=== PATIENT | female | born 1970 | race Caucasian/White ===

== ENCOUNTER 2016-06-05 18:02 | Inpatient (IN) | payer OTHER ==
[~2016-06-05] VITALS: Ht 160 cm; Wt 73.3 kg
[2016-06-05 22:00] VITALS: BP 139/84; RESP 18
[2016-06-05] MEDS ORDERED: LACTULOSE 30ML CUP PO PRN (22:30)
[2016-06-05] MEDS ORDERED: MAGNESIUM HYDROXIDE 30ML CUP PO PRN (22:30)
[2016-06-05] MEDS ORDERED: BISACODYL 10 MG SUPP PR PRN (22:30)
[2016-06-05] MEDS ORDERED: ACETAMINOPHEN 325 MG TAB PO PRN (22:30)
[2016-06-05 23:00] VITALS: Ht 160 cm; Wt 73.3 kg
[2016-06-05] MEDS ORDERED: GLUCOSE GEL 15 GRAM TUBE BUCCAL PRN (23:00)
[2016-06-05] MEDS ORDERED: GLUCAGON 1 MG INJ IM PRN (23:00)
[2016-06-05] MEDS ORDERED: GLUCOSE GEL 15 GRAM TUBE PO PRN ×2 (23:00)
[2016-06-05] MEDS ORDERED: [UNRECOGNIZED DRUG - REMARK] XX SCH (23:00)
[2016-06-05] MEDS ORDERED: DEXTROSE 50% 50 ML SYRINGE IV PRN ×2 (23:00)
[2016-06-06] MEDS: ACCUCHECK AT 2AM (Patients on SS coverage) XX SCH (02:00)
[2016-06-06 02:01] LABS: ADD UMIC YES; URINE BILIRUBIN (Dip) NEGATIVE (NEGATIVE); URINE BLOOD (Dip) NEGATIVE (NEGATIVE); URINE COLOR LT. YELLOW (YELLOW); URINE GLUCOSE (Dip) NEGATIVE (NEGATIVE); URINE KETONES (Dip) NEGATIVE (NEGATIVE); URINE LEUKOCYTE ESTERASE (Dip) 1+ (NEGATIVE); URINE NITRITE (Dip) POSITIVE (NEGATIVE); URINE TOTAL PROTEIN (Dip) NEGATIVE (NEGATIVE); URINE UROBILINOGEN (Dip) 0.2 E.U./dL (0.1-1.0)
[2016-06-06 02:21] LABS: SQUAMOUS EPITHELIAL CELL,UR OCCASIONAL; URINE RBCS 0-2 /HPF (0)
[2016-06-06 02:22] LABS: BACTERIA,URINE MANY
[2016-06-06 07:30] VITALS: BP 135/80; RESP 18
[2016-06-06] MEDS ORDERED: INSULIN GLARGINE [LANtus] 3 ML PEN SC SCH (08:00)
[2016-06-06 08:13] LABS: BASOPHIL # 0.1 10^3/ul (0.0-0.1); BASOPHILS % 0.6 % (0.0-2.0); EOSINOPHILS # 0.2 10^3/ul (0.0-0.5); EOSINOPHILS % 2.3 % (0.0-7.0); HEMATOCRIT 49.9 % (37.0-47.0); HEMOGLOBIN 16.5 g/dl (12.0-16.0); LYMPHOCYTES # 3.3 10^3/ul (0.8-2.9); LYMPHOCYTES % 35.4 % (15.0-51.0); MEAN CORPUSCULAR HEMOGLOBIN 30.3 pg (29.0-33.0); MEAN CORPUSCULAR HGB CONC 33.1 g/dl (32.0-37.0); MEAN CORPUSCULAR VOLUME 91.7 fl (82.0-101.0); MEAN PLATELET VOLUME 10.7 fl (7.4-10.4); MONOCYTE # 0.8 10^3/ul (0.3-0.9); MONOCYTES % 8.3 % (0.0-11.0); NEUTROPHILS % 53.3 % (39.0-77.0); PLATELET COUNT 323 10^3/UL (140-415); RED BLOOD COUNT 5.44 10^6/ul (4.20-5.40); RED CELL DISTRIBUTION WIDTH 13.7 % (11.5-14.5); WHITE BLOOD COUNT 9.3 10^3/ul (4.8-10.8)
[2016-06-06 08:14] LABS: ALBUMIN 4.3 g/dl (3.3-4.9)
[2016-06-06 08:15] LABS: POTASSIUM 4.3 mmol/L (3.5-5.1)
[2016-06-06 08:17] LABS: ALBUMIN/GLOBULIN RATIO 1.16; BILIRUBIN,INDIRECT 0.2 mg/dl (0-1.1); BILIRUBIN,TOTAL 0.2 mg/dl (0.2-1.3); CALCIUM 9.4 mg/dl (8.4-10.2); CREATININE 1.92 mg/dl (0.44-1.00)
[2016-06-06] MEDS: DOCUSATE SODIUM 100 MG CAP PO SCH ×2 (08:52→21:05)
[2016-06-06] MEDS: AMLODIPINE 10 MG TAB PO SCH (08:57)
[2016-06-06] MEDS: LISINOPRIL 20 MG TAB PO SCH (08:58)
[2016-06-06] MEDS ORDERED: ATENOLOL 25 MG TAB PO SCH (09:00)
[2016-06-06] MEDS ORDERED: HYDROCHLOROTHIAZIDE 25 MG TAB PO SCH (09:00)
[2016-06-06] MEDS: Insulin NOVOLOG SS MILD Algorithm (SS with meals and bedtime) SC SCH ×4 (09:04→21:13)
--- NOTE | 2016-06-06 12:26 | CONS ---
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 ACTIVE COMORBIDITIES: 1. Uncontrolled diabetes mellitus. 2. Hypertension. 3. Dysphagia. 4. Impairments in self-care and mobility. HISTORY OF PRESENT ILLNESS: The patient is a pleasant 45-year-old right-handed female with a histor y of hypertension who was admitted with weakness and blurry vision. Workup was consistent with acut e mid brain hemorrhagic CVA. The patient was evaluated by neurosurgery and no surgical intervention was indicated. The patient has been cleared to transfer to the rehabilitation unit for comprehensi ve interdisciplinary rehab care. FUNCTIONAL HISTORY: Prior to recent events, she was independent in self-care tasks and mobility. C urrently, she requires moderate assist. I have reviewed the preadmission screen and the patient's current functional status is consistent wi th the preadmission screen. SOCIAL HISTORY: The patient lives at home with family and hopes to return home upon discharge. PAST MEDICAL HISTORY: Hypertension. CURRENT MEDICATIONS: 1. Insulin sliding scale. 2. Amlodipine 10 mg p.o. daily. 3. Atorvastatin 80 mg p.o. at bedtime. 4. Lisinopril 40 mg p.o. daily. 5. Metoprolol 100 mg b.i.d. 6. Hydrochlorothiazide 50 mg daily. ALLERGIES: THE PATIENT WITH NO KNOWN DRUG ALLERGIES. PHYSICAL EXAMINATION: VITAL SIGNS: The patient is currently afebrile with stable vital signs. HEENT: Extraocular motion intact. Oropharynx clear. The patient with decreased nasolabial fold. LUNGS: Clear anteriorly. CARDIAC: S1, S2. ABDOMEN: Soft, nontender, positive bowel sounds. NEUROLOGIC: She is awake and alert and oriented x3. She will follow simple 1-step commands. She d emonstrates good strength in the right upper and lower extremity. She has 2+ strength in the left u pper extremity, 3+ strength, in the left lower extremity. PLAN: The patient has been admitted for comprehensive interdisciplinary acute rehab and is anticipa vi to tolerate 3 hours of daily therapy in divided doses for at least 5/7 days a week. Treatment p maricruz will include: 1. Physical therapy to focus on bed mobility, transfers, and household ambulation with the goal of having the patient reach a standby assist level. 2. Occupational therapy to focus on hygiene, grooming, dressing, bathing, and toileting activities with the goal of having the patient reach standby assist level. 3. Rehabilitation nursing for carryover of therapeutic interventions with the goal of continent of bowel and bladder, the goal of patient and family education with regards to the aforementioned issue s. ESTIMATED LENGTH OF STAY: Two weeks. DISPOSITION GOAL: Home. REHABILITATION BARRIER: Dysphagia. INTERVENTION FOR BARRIER: Speech therapy. I acknowledge that I performed a full physical examination on this patient within 24 hours of admiss ion to the rehabilitation unit and believe the patient is a good candidate for comprehensive interdi sciplinary rehab care and is anticipated to make reasonable goals in a reasonable period of time as outlined above. Dictated By: ALEXANDRO CABAN/APRYL Conf#: [id number] DID#: [id number]
[2016-06-06] MEDS ORDERED: SOD CHLORIDE 0.45% 1,000 ML IV SCH (16:30)
[2016-06-06] MEDS: HYDROCHLOROTHIAZIDE 12.5 MG CAP PO SCH (18:12)
[2016-06-06 20:00] VITALS: BP 125/68; RESP 18
[2016-06-06] MEDS ORDERED: METOPROLOL 100 MG TAB PO SCH (21:00)
[2016-06-06] MEDS: SENNA TAB PO SCH (21:05)
[2016-06-06] MEDS: METOPROLOL 50 MG TAB PO SCH (21:05)
[2016-06-06] MEDS: ATORVASTATIN 80 MG TAB PO SCH (21:05)
[2016-06-07] MEDS: ACCUCHECK AT 2AM (Patients on SS coverage) XX SCH (02:05)
[2016-06-07 07:30] VITALS: BP 135/75; RESP 18
--- NOTE | 2016-06-07 08:05 | HP ---
DATE OF ADMISSION: 06/05/2016 FIRE MANAGEMENT SPECIALIST: None. REASON FOR ADMISSION: Status post CVA. HISTORY OF PRESENT ILLNESS: This is a 45-year-old female with past medical history of hypertension and diabetes mellitus, who on 05/29/2016 was admitted to [facility] secondary to having 5 d ays of blurry vision. The patient's blurry vision was constant. She denied any history of smoking or alcohol intake. The patient had the history of blood pressure, but has not been taking her medi cation recently and her blood pressure was found to be over [address] of the brain was obtained which showed acute mid brain intracranial hemorrhage and she was admitted to the ICU where she was seen and evaluated by neurology and neurosurgery. After clearance by the neurolog y, neurosurgery and medical team at [place], the patient was transferred to [facility] rehab for further evaluation and treatment. At this time, the patient denies having any chest pain, shortness of breath, nausea, vomiting, diarrhea. No headache, dizziness, lightheadedness. No change in visual acuity, diplopia, photophobia. No abdominal pain. The patient has been able to t olerate p.o. intake during the course of hospitalization. She does have residual left upper and low er extremity weakness and according to her daughter, the patient is not back to her baseline mentall y yet. PAST MEDICAL AND SURGICAL HISTORY: 1. Intracranial hemorrhage. 2. Hypertension. 3. Diabetes mellitus. MEDICATIONS: 1. Tylenol. 2. Norvasc. 3. Lipitor. 4. Hydralazine p.r.n. 5. Lantus. 6. Insulin sliding scale. 7. Labetalol p.r.n. 8. Reglan. 9. Metoprolol. 10. Nicardipine p.r.n. 11. Zofran. ALLERGIES: NO KNOWN DRUG ALLERGIES. FAMILY HISTORY: No history of CVA. Positive for hypertension, diabetes mellitus. SOCIAL HISTORY: Negative x3 for smoking, alcohol, illicit drugs. REVIEW OF SYSTEMS: As above per HPI, otherwise 12 review of systems has been found to be negative. PHYSICAL EXAMINATION: GENERAL APPEARANCE: The patient is lying in bed comfortably without any distress. She is awake, al ert, oriented. She is able to follow my commands without any difficulty. EYES AND ENT: Conjunctivae and lids are normal. Pupils are normal. Extraocular normal. Hearing g rossly normal. Lips, teeth and gums normal. Oral mucosa is mildly dry. NECK: Supple. Trachea midline. No lymphadenopathy. RESPIRATORY: Effort is normal. Clear to auscultation bilaterally. CARDIOVASCULAR: Normal S1, S2. Regular rhythm and rate. No murmur, no bruits, no edema. Peripher al pulses, radial pulses palpable. Capillary refill is normal. CHEST: Normal expansion of thorax during inspiration. GASTROINTESTINAL: Abdomen is soft, nontender, nondistended. Bowel sounds present. No guarding, no rebound. GENITOURINARY: Deferred. MUSCULOSKELETAL: Left upper extremity 4/5, left upper extremity 4/5. Right extremity is normal. The patient is awake, alert, able to follow commands. LABORATORY DATA: Sodium 139, potassium 4.3, chloride 98, bicarbonate 24, BUN 54, creatinine 1.92, g lucose 193, calcium 9.4. AST 71, ALT 98, alkaline phosphatase 192. WBC 9.3, hemoglobin 16.5, hemat ocrit 49.9, platelets 323. IMAGING: MRI of the brain revealed limited study due to patient motion. Findings most likely repre sent x 1 in the dorsal mid brain, acute hemorrhagic lesion. There is surrounding edema. This represents recent hemorrhage within the preexisting cavernoma, acute infarct in the left late ral chriss and superior cerebellum, tiny acute infarct in the right parietal white matter. CT angiogr am of the head with contrast: There was no AVM or aneurysm, no abnormal enhancement was seen. Prev iously seen hemorrhage above mid brain was again seen. ASSESSMENT AND PLAN: 1. Subacute mid brain bleed. 2. Essential hypertension. 3. Diabetes mellitus. 4. Dyslipidemia. 5. History of noncompliance with medical management. 6. Acute renal insufficiency. 7. Transaminitis. PLAN: The patient has been admitted to acute rehabilitation. We will continue patient's blood pres sure medications such as amlodipine. Place the patient on Lopressor. Decrease hydrochlorothiazide secondary to acute renal insufficiency. Continue lisinopril, although we will be cautious regarding the dosage and we will decrease the dosage if the renal panel continues to be insufficient. Regard ing diabetes mellitus, the patient has been placed on insulin sliding scale, low-carbohydrate diet a nd Lantus. We increased the Lantus to 15 units secondary to uncontrolled diabetes mellitus. The pa tient will be continued on physical therapy, occupational therapy and speech therapy during this cou rse of acute rehabilitation. For deep venous thrombosis prophylaxis, on SCDs. Refrain from using a ny pharmacologic DVT prophylaxis secondary to intracranial hemorrhage. Dictated By: SCAR BOYER MD PN/NTS Conf#: [id number] DID#: [id number]
[2016-06-07] MEDS: LISINOPRIL 20 MG TAB PO SCH (08:23)
[2016-06-07] MEDS: HYDROCHLOROTHIAZIDE 12.5 MG CAP PO SCH (08:24)
[2016-06-07] MEDS: DOCUSATE SODIUM 100 MG CAP PO SCH ×2 (08:24→20:14)
[2016-06-07] MEDS: METOPROLOL 50 MG TAB PO SCH ×2 (08:24→20:15)
[2016-06-07] MEDS: AMLODIPINE 10 MG TAB PO SCH (08:24)
[2016-06-07] MEDS: INSULIN GLARGINE [LANtus] 3 ML PEN SC SCH (08:26)
[2016-06-07] MEDS: Insulin NOVOLOG SS MILD Algorithm (SS with meals and bedtime) SC SCH ×4 (08:26→20:21)
[2016-06-07] MEDS ORDERED: HYDROCHLOROTHIAZIDE 25 MG TAB PO SCH (09:00)
--- NOTE | 2016-06-07 11:50 | CONS ---
Date/Time of Note Date/Time of Note DATE: 06/07/16 TIME: 11:48 Consult Date/Type/Reason Admit Date/Time Jun 05, 2016 at 20:45 Initial Consult Date Subjective Patient with some nause/vomitting this morning. Feels better now Objective pulm-cta abd-soft, nt min/mod 20 feet Vital Signs Date Time Temp Pulse Resp B/P Pulse Ox O2 Delivery O2 Flow Rate FiO2 06/07/16 07:30 98.2 58 18 135/75 95 Intake and Output 06/06/16 06/06/16 06/07/16 15:00 23:00 07:00 Intake Total 420 ml 940 ml Output Total 300 ml Balance 420 ml 640 ml Results/Medications Result Diagram: 06/06/1671406/06/16714 Results 24 hrs Laboratory Tests Test 06/06/16 11:58 06/06/16 17:41 06/06/16 21:04 06/07/16 01:52 Bedside Glucose 241 H 208 257 H 155 Test 06/07/16 07:24 Bedside Glucose 155 Medications Current Medications Acetaminophen (Tylenol Tab) 650 mg Q4H PRN PO PAIN AND OR ELEVATED TEMP; Start 06/05/16 at 22:30 Amlodipine Besylate (Norvasc) 10 mg DAILY PO Last administered on 06/07/16 08: 24; Admin Dose 10 MG; Start 06/06/16 at 09:00 Atorvastatin Calcium (Lipitor) 80 mg HS PO Last administered on 06/06/16 21:05 ; Admin Dose 80 MG; Start 06/06/16 at 21:00 Lisinopril (Zestril) 40 mg DAILY PO Last administered on 06/07/16 08:23; Admin Dose 40 MG; Start 06/06/16 at 09:00 Docusate Sodium (Colace) 100 mg BID PO Last administered on 06/07/16 08:24; Admin Dose 100 MG; Start 06/06/16 at 09:00 Senna (Senokot) 1 tab HS PO Last administered on 06/06/16 21:05; Admin Dose 1 TAB; Start 06/06/16 at 21:00 Magnesium Hydroxide (Milk Of Mag) 30 ml BID PRN PO CONSTIPATION Last administered on 06/07/16 08:27; Admin Dose 30 ML; Start 06/05/16 at 22:30 Lactulose (Enulose) 20 gm DAILY PRN PO CONSTIPATION; Start 06/05/16 at 22:30 Bisacodyl (Dulcolax Supp) 10 mg DAILY PRN [place] CONSTIPATION; Start 06/05/16 at 22 :30 Miscellaneous Information 1 ea NOTE XX ; Start 06/05/16 at 23:00 Glucose (Glutose) 15 gm Q15M PRN PO DECREASED GLUCOSE; Start 06/05/16 at 23:00 Glucose (Glutose) 22.5 gm Q15M PRN PO DECREASED GLUCOSE; Start 06/05/16 at 23: 00 Dextrose (D50w Syringe) 25 ml Q15M PRN IV DECREASED GLUCOSE; Start 06/05/16 at 23:00 Dextrose (D50w Syringe) 50 ml Q15M PRN IV DECREASED GLUCOSE; Start 06/05/16 at 23:00 Glucagon (Glucagen) 1 mg Q15M PRN IM DECREASED GLUCOSE; Start 06/05/16 at 23:00 Glucose (Glutose) 15 gm Q15M PRN BUCCAL DECREASED GLUCOSE; Start 06/05/16 at 23 :00 Diagnostic Test (Pha) (Accucheck) 1 ea 02 XX Last administered on 06/07/16 02: 05; Admin Dose 1 EA; Start 06/06/16 at 02:00 Influenza Virus Vaccine (Fluzone) 0.5 ml ONCE ONCE IM* ; Start 06/08/16 at 09:00 ; Stop 06/08/16 at 09:01 Metoprolol Tartrate (Lopressor) 50 mg BID PO Last administered on 06/06/16 21: 05; Admin Dose 50 MG; Start 06/06/16 at 21:00 Hydrochlorothiazide (Hydrochlorothiazide) 12.5 mg DAILY PO Last administered on 06/07/16 08:24; Admin Dose 12.5 MG; Start 06/06/16 at 18:00 Insulin Glargine (Lantus) 15 unit DAILY@08 SC Last administered on 06/07/16 08 :26; Admin Dose 15 UNIT; Start 06/07/16 at 08:00 Assessment/Plan Additional Assessment/Plan Rehab- 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 Tolerating rehab program, continue current therapy diabetes mellitus-michael suggs, better today. Hypertension. Dysphagia. ALEXANDRO MELTON MD Jun 07, 2016 11:50
[2016-06-07] MEDS ORDERED: ONDANSETRON 4 MG INJ IV PRN (15:00)
--- NOTE | 2016-06-07 16:13 | PN ---
Date/Time of Note Date/Time of Note DATE: 06/07/16 TIME: 16:11 Assessment/Plan VTE Prophylaxis VTE Prophylaxis Intervention: SCD's Lines/Catheters IV [facility] Peripheral IV Urinary Cath still in place: No Assessment/Plan Chief Complaint/Hosp Course ASSESSMENT AND PLAN: 1. Subacute mid brain bleed. The patient will be continued on physical therapy , occupational therapy and speech therapy during this course of acute rehabilitation 2. Essential hypertension. Well-controlled on amlodipine, benazepril and Lopressor 3. Diabetes mellitus. Follow hemoglobin A1c, continue Lantus, low-carb diet 4. Dyslipidemia. 5. History of noncompliance with medical management. 6. Acute renal insufficiency. Follow-up renal panel in a.m. 7. Transaminitis. Continue to monitor PLAN: For deep venous thrombosis prophylaxis, on SCDs. Refrain from using any pharmacologic DVT prophylaxis secondary to intracranial hemorrhage. We will continue monitor patient closely for recommendation management treatment as clinical course Problems: Subjective 24 Hr Interval Summary Free Text/Dictation Patient denies any chest pain or shortness of breath Follow oral intake Moderate assist with ambulation, ambulating with walker Exam/Review of Systems Vital Signs Vitals Vital Signs Date Time Temp Pulse Resp B/P Pulse Ox O2 Delivery O2 Flow Rate FiO2 06/07/16 07:30 98.2 58 18 135/75 95 Intake and Output 06/06/16 06/06/16 06/07/16 15:00 23:00 07:00 Intake Total 420 ml 940 ml Output Total 300 ml Balance 420 ml 640 ml Exam General: The patient is well-developed, Not in acute distress. HEENT: Atraumatic, normocephalic. The pupils are equal and round . Neck: Supple with full range of motion. Chest: Normal expansion of the thorax during inspiration Lungs: Clear to auscultation bilaterally Heart: Normal S1-S2, Regular rhythm and rate. Abdomen: Soft , nontender, nondistended , bowel sounds are present. Extremities: Left upper and lower extremity weakness4/5 , no edema no cyanosis Neurologic: ,The patient is awake, alert Results Result Diagram: 06/06/16 0715 06/06/16 0715 Results 24 hrs Laboratory Tests Test 06/06/16 17:41 06/06/16 21:04 06/07/16 01:52 06/07/16 07:24 Bedside Glucose 208 257 H 155 155 Test 06/07/16 12:04 Bedside Glucose 253 H Medications Medications Current Medications Acetaminophen (Tylenol Tab) 650 mg Q4H PRN PO PAIN AND OR ELEVATED TEMP; Start 06/05/16 at 22:30 Amlodipine Besylate (Norvasc) 10 mg DAILY PO Last administered on 06/07/16 08: 24; Admin Dose 10 MG; Start 06/06/16 at 09:00 Atorvastatin Calcium (Lipitor) 80 mg HS PO Last administered on 06/06/16 21:05 ; Admin Dose 80 MG; Start 06/06/16 at 21:00 Lisinopril (Zestril) 40 mg DAILY PO Last administered on 06/07/16 08:23; Admin Dose 40 MG; Start 06/06/16 at 09:00 Docusate Sodium (Colace) 100 mg BID PO Last administered on 06/07/16 08:24; Admin Dose 100 MG; Start 06/06/16 at 09:00 Senna (Senokot) 1 tab HS PO Last administered on 06/06/16 21:05; Admin Dose 1 TAB; Start 06/06/16 at 21:00 Magnesium Hydroxide (Milk Of Mag) 30 ml BID PRN PO CONSTIPATION Last administered on 06/07/16 08:27; Admin Dose 30 ML; Start 06/05/16 at 22:30 Lactulose (Enulose) 20 gm DAILY PRN PO CONSTIPATION; Start 06/05/16 at 22:30 Bisacodyl (Dulcolax Supp) 10 mg DAILY PRN [place] CONSTIPATION; Start 06/05/16 at 22 :30 Miscellaneous Information 1 ea NOTE XX ; Start 06/05/16 at 23:00 Glucose (Glutose) 15 gm Q15M PRN PO DECREASED GLUCOSE; Start 06/05/16 at 23:00 Glucose (Glutose) 22.5 gm Q15M PRN PO DECREASED GLUCOSE; Start 06/05/16 at 23: 00 Dextrose (D50w Syringe) 25 ml Q15M PRN IV DECREASED GLUCOSE; Start 06/05/16 at 23:00 Dextrose (D50w Syringe) 50 ml Q15M PRN IV DECREASED GLUCOSE; Start 06/05/16 at 23:00 Glucagon (Glucagen) 1 mg Q15M PRN IM DECREASED GLUCOSE; Start 06/05/16 at 23:00 Glucose (Glutose) 15 gm Q15M PRN BUCCAL DECREASED GLUCOSE; Start 06/05/16 at 23 :00 Diagnostic Test (Pha) (Accucheck) 1 ea 02 XX Last administered on 06/07/16 02: 05; Admin Dose 1 EA; Start 06/06/16 at 02:00 Influenza Virus Vaccine (Fluzone) 0.5 ml ONCE ONCE IM* ; Start 06/08/16 at 09:00 ; Stop 06/08/16 at 09:01 Metoprolol Tartrate (Lopressor) 50 mg BID PO Last administered on 06/06/16 21: 05; Admin Dose 50 MG; Start 06/06/16 at 21:00 Hydrochlorothiazide (Hydrochlorothiazide) 12.5 mg DAILY PO Last administered on 06/07/16 08:24; Admin Dose 12.5 MG; Start 06/06/16 at 18:00 Insulin Glargine (Lantus) 15 unit DAILY@08 SC Last administered on 06/07/16 08 :26; Admin Dose 15 UNIT; Start 06/07/16 at 08:00 Ondansetron HCl (Zofran Inj) 4 mg Q6H PRN IV NAUSEA AND/OR VOMITING; Start at 15:00 SCAR BOYER MD Jun 07, 2016 16:13
[2016-06-07 20:00] VITALS: BP 120/76; RESP 18
[2016-06-07] MEDS: ATORVASTATIN 80 MG TAB PO SCH (20:14)
[2016-06-07] MEDS: SENNA TAB PO SCH (20:15)
[2016-06-08] MEDS: ACCUCHECK AT 2AM (Patients on SS coverage) XX SCH (02:00)
[2016-06-08 07:58] LABS: POTASSIUM 4.2 mmol/L (3.5-5.1)
[2016-06-08 08:01] LABS: CALCIUM 9.7 mg/dl (8.4-10.2); CREATININE 2.16 mg/dl (0.44-1.00)
[2016-06-08] MEDS ORDERED: INFLUENZA VIRUS VACCINE 0.5 ML (DISPENSING) IM* ONE (09:00)
[2016-06-08] MEDS ORDERED: ERTAPENEM SODIUM 1 GM VIAL IM SCH (09:00)
[2016-06-08] MEDS: DOCUSATE SODIUM 100 MG CAP PO SCH ×2 (09:19→20:50)
[2016-06-08] MEDS: METOPROLOL 50 MG TAB PO SCH ×2 (09:20→20:50)
[2016-06-08] MEDS: LISINOPRIL 20 MG TAB PO SCH (09:20)
[2016-06-08] MEDS: AMLODIPINE 10 MG TAB PO SCH (09:20)
[2016-06-08] MEDS: HYDROCHLOROTHIAZIDE 12.5 MG CAP PO SCH (09:20)
[2016-06-08] MEDS: INSULIN GLARGINE [LANtus] 3 ML PEN SC SCH (09:21)
[2016-06-08] MEDS: Insulin NOVOLOG SS MILD Algorithm (SS with meals and bedtime) SC SCH ×4 (09:24→20:56)
[2016-06-08] MEDS ORDERED: ERTAPENEM SODIUM 1 GM in SOD CHLORIDE 0.9% 100 ML IVPB SCH (12:00)
[2016-06-08] MEDS ORDERED: ERTAPENEM SODIUM 1 GM VIAL IVPB SCH (12:00)
--- NOTE | 2016-06-08 13:02 | PN ---
Date/Time of Note Date/Time of Note DATE: 06/08/16 TIME: 12:57 Assessment/Plan VTE Prophylaxis VTE Prophylaxis Intervention: SCD's Lines/Catheters IV Catheter Type (from Nrs): [place] Urinary Cath still in place: No Assessment/Plan Assessment/Plan 1. Mid brain intracranial hemorrhage, managed conservatively, with residual weakness, impaired mobility/gait/ADLs/cognition and dysphagia. Continue PT/OT/ ST. Modified diet per ST. Min assist for bed mobility. Continue monitoring neurological status. 2. Uncontrolled DM. Continue to monitor blood sugars, insulin regimen adjusted by internal medicine. 3. Hypertension. BP controlled. 4. UTI with ESBL E Coli and Proteus. Started on antibiotics per internal medicine. On contact isolation. 5. Acute kidney injury. S/p IV fluids. Worsening on labs today, management per internal medicine. Continue to closely monitor. Avoid nephrotoxic agents. Will ask check post void residual. Subjective 24 Hr Interval Summary Free Text/Dictation Rehab progress note Subjective: Reports some urinary frequency but no dysuria, no chills. ROS: No abdominal pain, no chest pain, no shortness of breath, no headache, no dizziness, no new weakness. Exam/Review of Systems Vital Signs Vitals Vital Signs Date Time Temp Pulse Resp B/P Pulse Ox O2 Delivery O2 Flow Rate FiO2 06/07/16 20:00 98.6 77 18 120/76 93 Intake and Output 06/07/16 06/07/16 06/08/16 15:00 23:00 07:00 Intake Total 660 ml 200 ml Balance 660 ml 200 ml Exam General: Awake, alert, no acute distress CV: Regular rate, s1s2 Lungs: Symmetrical air entry bilaterally, no wheezing Abdomen soft, nontender Extremities without cyanosis, LLE AFO brace in place Neuro: Follows simple commands. No increase in tone. Results Result Diagram: 06/06/16 0715 06/08/16 0645 Results 24 hrs Laboratory Tests Test 06/07/16 17:23 06/07/16 20:19 06/08/16 01:52 06/08/16 06:05 Bedside Glucose 213 225 H 189 Hemoglobin A1c 10.2 H Test 06/08/16 06:45 06/08/16 07:58 06/08/16 12:28 Anion Gap 22 H Blood Urea Nitrogen 74 H Calcium Level 9.7 Carbon Dioxide Level 23 Chloride Level 100 Creatinine 2.16 H Glucose Level 201 Potassium Level 4.2 Sodium Level 141 Bedside Glucose 176 242 H Medications Medications Current Medications Acetaminophen (Tylenol Tab) 650 mg Q4H PRN PO PAIN AND OR ELEVATED TEMP; Start 06/05/16 at 22:30 Amlodipine Besylate (Norvasc) 10 mg DAILY PO Last administered on 06/08/16 09: 20; Admin Dose 10 MG; Start 06/06/16 at 09:00 Atorvastatin Calcium (Lipitor) 80 mg HS PO Last administered on 06/07/16 20:14 ; Admin Dose 80 MG; Start 06/06/16 at 21:00 Lisinopril (Zestril) 40 mg DAILY PO Last administered on 06/08/16 09:20; Admin Dose 40 MG; Start 06/06/16 at 09:00 Docusate Sodium (Colace) 100 mg BID PO Last administered on 06/08/16 09:19; Admin Dose 100 MG; Start 06/06/16 at 09:00 Senna (Senokot) 1 tab HS PO Last administered on 06/07/16 20:15; Admin Dose 1 TAB; Start 06/06/16 at 21:00 Magnesium Hydroxide (Milk Of Mag) 30 ml BID PRN PO CONSTIPATION Last administered on 06/07/16 08:27; Admin Dose 30 ML; Start 06/05/16 at 22:30 Lactulose (Enulose) 20 gm DAILY PRN PO CONSTIPATION; Start 06/05/16 at 22:30 Bisacodyl (Dulcolax Supp) 10 mg DAILY PRN [place] CONSTIPATION; Start 06/05/16 at 22 :30 Miscellaneous Information 1 ea NOTE XX ; Start 06/05/16 at 23:00 Glucose (Glutose) 15 gm Q15M PRN PO DECREASED GLUCOSE; Start 06/05/16 at 23:00 Glucose (Glutose) 22.5 gm Q15M PRN PO DECREASED GLUCOSE; Start 06/05/16 at 23: 00 Dextrose (D50w Syringe) 25 ml Q15M PRN IV DECREASED GLUCOSE; Start 06/05/16 at 23:00 Dextrose (D50w Syringe) 50 ml Q15M PRN IV DECREASED GLUCOSE; Start 06/05/16 at 23:00 Glucagon (Glucagen) 1 mg Q15M PRN IM DECREASED GLUCOSE; Start 06/05/16 at 23:00 Glucose (Glutose) 15 gm Q15M PRN BUCCAL DECREASED GLUCOSE; Start 06/05/16 at 23 :00 Diagnostic Test (Pha) (Accucheck) 1 ea 02 XX Last administered on 06/07/16 02: 05; Admin Dose 1 EA; Start 06/06/16 at 02:00 Metoprolol Tartrate (Lopressor) 50 mg BID PO Last administered on 06/08/16 09: 20; Admin Dose 50 MG; Start 06/06/16 at 21:00 Hydrochlorothiazide (Hydrochlorothiazide) 12.5 mg DAILY PO Last administered on 06/08/16 09:20; Admin Dose 12.5 MG; Start 06/06/16 at 18:00 Insulin Glargine (Lantus) 15 unit DAILY@08 SC Last administered on 06/08/16 09 :21; Admin Dose 15 UNIT; Start 06/07/16 at 08:00 Ondansetron HCl 4 mg 4 mg Q6H PRN IV NAUSEA AND/OR VOMITING; Start 06/07/16 at 15:00 Ertapenem/Sodium Chloride (Invanz/NS) 100 ml @ 200 mls/hr 12 IVPB Last administered on 06/08/16 12:27; Admin Dose 200 MLS/HR; Start 06/08/16 at 12:00 NIDHI COHEN Jun 08, 2016 13:02
--- NOTE | 2016-06-08 14:46 | PN ---
Date/Time of Note Date/Time of Note DATE: 06/08/16 TIME: 14:44 Assessment/Plan VTE Prophylaxis VTE Prophylaxis Intervention: SCD's Lines/Catheters IV C[facility]ter Type (from [facility] Saline Lock Urinary Cath still in place: No Assessment/Plan Chief Complaint/Hosp Course ASSESSMENT AND PLAN: 1. Subacute mid brain bleed. The patient will be continued on physical therapy , occupational therapy and speech therapy during this course of acute rehabilitation 2. Essential hypertension. Well-controlled on nifedipine, benazepril and Lopressor 3. Diabetes mellitus. continue Lantus, low-carb diet 4. Dyslipidemia. 5. History of noncompliance with medical management. 6. Acute renal insufficiency. Avoid nephrotoxins and meds, nephrology has been consulted, patient has been started on IV fluid, benazepril has been decreased from 40 mg to 20 mg daily 7. Transaminitis. Continue to monitor PLAN: For deep venous thrombosis prophylaxis, on SCDs. Refrain from using any pharmacologic DVT prophylaxis secondary to intracranial hemorrhage. We will continue monitor patient closely for recommendation management treatment as clinical course Problems: Subjective 24 Hr Interval Summary Free Text/Dictation Patient is able to tolerate oral intake No significant changes Exam/Review of Systems Vital Signs Vitals Vital Signs Date Time Temp Pulse Resp B/P Pulse Ox O2 Delivery O2 Flow Rate FiO2 06/07/16 20:00 98.6 77 18 120/76 93 Intake and Output 06/07/16 06/07/16 06/08/16 15:00 23:00 07:00 Intake Total 660 ml 200 ml Balance 660 ml 200 ml Exam General: The patient is moderately overweight, Not in acute distress. HEENT: Atraumatic, normocephalic. The pupils are equal and round . Neck: Supple with full range of motion. Chest: Normal expansion of the thorax during inspiration Lungs: Clear to auscultation bilaterally Heart: Normal S1-S2, Regular rhythm and rate. Abdomen: Soft , nontender, nondistended , bowel sounds are present. Extremities: Left upper and lower extremity weakness 3/5, no edema no cyanosis Neurologic:The patient is awake, alert Results Result Diagram: 06/06/16 0715 06/08/16 0645 Results 24 hrs Laboratory Tests Test 06/07/16 17:23 06/07/16 20:19 06/08/16 01:52 06/08/16 06:05 Bedside Glucose 213 225 H 189 Hemoglobin A1c 10.2 H Test 06/08/16 06:45 06/08/16 07:58 06/08/16 12:28 Anion Gap 22 H Blood Urea Nitrogen 74 H Calcium Level 9.7 Carbon Dioxide Level 23 Chloride Level 100 Creatinine 2.16 H Glucose Level 201 Potassium Level 4.2 Sodium Level 141 Bedside Glucose 176 242 H Medications Medications Current Medications Acetaminophen (Tylenol Tab) 650 mg Q4H PRN PO PAIN AND OR ELEVATED TEMP; Start 06/05/16 at 22:30 Amlodipine Besylate (Norvasc) 10 mg DAILY PO Last administered on 06/08/16 09: 20; Admin Dose 10 MG; Start 06/06/16 at 09:00 Atorvastatin Calcium (Lipitor) 80 mg HS PO Last administered on 06/07/16 20:14 ; Admin Dose 80 MG; Start 06/06/16 at 21:00 Lisinopril (Zestril) 40 mg DAILY PO Last administered on 06/08/16 09:20; Admin Dose 40 MG; Start 06/06/16 at 09:00 Docusate Sodium (Colace) 100 mg BID PO Last administered on 06/08/16 09:19; Admin Dose 100 MG; Start 06/06/16 at 09:00 Senna (Senokot) 1 tab HS PO Last administered on 06/07/16 20:15; Admin Dose 1 TAB; Start 06/06/16 at 21:00 Magnesium Hydroxide (Milk Of Mag) 30 ml BID PRN PO CONSTIPATION Last administered on 06/07/16 08:27; Admin Dose 30 ML; Start 06/05/16 at 22:30 Lactulose (Enulose) 20 gm DAILY PRN PO CONSTIPATION; Start 06/05/16 at 22:30 Bisacodyl (Dulcolax Supp) 10 mg DAILY PRN [place] CONSTIPATION; Start 06/05/16 at 22 :30 Miscellaneous Information 1 ea NOTE XX ; Start 06/05/16 at 23:00 Glucose (Glutose) 15 gm Q15M PRN PO DECREASED GLUCOSE; Start 06/05/16 at 23:00 Glucose (Glutose) 22.5 gm Q15M PRN PO DECREASED GLUCOSE; Start 06/05/16 at 23: 00 Dextrose (D50w Syringe) 25 ml Q15M PRN IV DECREASED GLUCOSE; Start 06/05/16 at 23:00 Dextrose (D50w Syringe) 50 ml Q15M PRN IV DECREASED GLUCOSE; Start 06/05/16 at 23:00 Glucagon (Glucagen) 1 mg Q15M PRN IM DECREASED GLUCOSE; Start 06/05/16 at 23:00 Glucose (Glutose) 15 gm Q15M PRN BUCCAL DECREASED GLUCOSE; Start 06/05/16 at 23 :00 Diagnostic Test (Pha) (Accucheck) 1 ea 02 XX Last administered on 06/07/16 02: 05; Admin Dose 1 EA; Start 06/06/16 at 02:00 Metoprolol Tartrate (Lopressor) 50 mg BID PO Last administered on 06/08/16 09: 20; Admin Dose 50 MG; Start 06/06/16 at 21:00 Hydrochlorothiazide (Hydrochlorothiazide) 12.5 mg DAILY PO Last administered on 06/08/16 09:20; Admin Dose 12.5 MG; Start 06/06/16 at 18:00 Insulin Glargine (Lantus) 15 unit DAILY@08 SC Last administered on 06/08/16 09 :21; Admin Dose 15 UNIT; Start 06/07/16 at 08:00 Ondansetron HCl 4 mg 4 mg Q6H PRN IV NAUSEA AND/OR VOMITING; Start 06/07/16 at 15:00 Ertapenem/Sodium Chloride (Invanz/NS) 100 ml @ 200 mls/hr 12 IVPB Last administered on 06/08/16 12:27; Admin Dose 200 MLS/HR; Start 06/08/16 at 12:00 SCAR BOYER MD Jun 08, 2016 14:46
[2016-06-08] MEDS: SOD CHLORIDE 0.45% 1,000 ML IV SCH (17:21)
[2016-06-08 19:29] VITALS: BP 124/75; RESP 16
[2016-06-08 19:50] VITALS: BP 121/70; RESP 18
[2016-06-08] MEDS: NIFEdipine (XL) 60 MG TAB PO SCH (20:50)
[2016-06-08] MEDS: ATORVASTATIN 80 MG TAB PO SCH (20:50)
[2016-06-08] MEDS: SENNA TAB PO SCH (20:50)
[2016-06-09] MEDS: ACCUCHECK AT 2AM (Patients on SS coverage) XX SCH (02:00)
[2016-06-09 07:23] LABS: ADD SCAN DIFF NO
[2016-06-09 07:27] LABS: BASOPHIL # 0.1 10^3/ul (0.0-0.1); BASOPHILS % 0.9 % (0.0-2.0); EOSINOPHILS # 0.2 10^3/ul (0.0-0.5); EOSINOPHILS % 2.5 % (0.0-7.0); HEMATOCRIT 47.4 % (37.0-47.0); HEMOGLOBIN 15.9 g/dl (12.0-16.0); LYMPHOCYTES # 3.4 10^3/ul (0.8-2.9); LYMPHOCYTES % 37.1 % (15.0-51.0); MEAN CORPUSCULAR HEMOGLOBIN 30.6 pg (29.0-33.0); MEAN CORPUSCULAR HGB CONC 33.5 g/dl (32.0-37.0); MEAN CORPUSCULAR VOLUME 91.3 fl (82.0-101.0); MEAN PLATELET VOLUME 10.9 fl (7.4-10.4); MONOCYTE # 0.7 10^3/ul (0.3-0.9); MONOCYTES % 7.5 % (0.0-11.0); NEUTROPHIL # 4.8 10^3/ul (1.6-7.5); NEUTROPHILS % 51.7 % (39.0-77.0); PLATELET COUNT 363 10^3/UL (140-415); RED BLOOD COUNT 5.19 10^6/ul (4.20-5.40); RED CELL DISTRIBUTION WIDTH 13.2 % (11.5-14.5); WHITE BLOOD COUNT 9.3 10^3/ul (4.8-10.8)
[2016-06-09 07:30] VITALS: BP 119/73; RESP 18
[2016-06-09 07:47] LABS: POTASSIUM 4.4 mmol/L (3.5-5.1)
[2016-06-09 07:50] LABS: CREATININE 1.63 mg/dl (0.44-1.00)
[2016-06-09 07:51] LABS: CALCIUM 9.4 mg/dl (8.4-10.2); MAGNESIUM 2.6 mg/dl (1.7-2.5)
[2016-06-09] MEDS: METOPROLOL 50 MG TAB PO SCH ×2 (09:00→20:23)
[2016-06-09] MEDS ORDERED: LISINOPRIL 20 MG TAB PO SCH (09:00)
[2016-06-09] MEDS: Insulin NOVOLOG SS MILD Algorithm (SS with meals and bedtime) SC SCH ×4 (09:02→20:49)
[2016-06-09] MEDS: DOCUSATE SODIUM 100 MG CAP PO SCH ×2 (09:03→20:22)
[2016-06-09] MEDS: INSULIN GLARGINE [LANtus] 3 ML PEN SC SCH (09:03)
[2016-06-09] MEDS: NIFEdipine (XL) 60 MG TAB PO SCH ×2 (09:03→20:23)
--- NOTE | 2016-06-09 10:58 | PN ---
Date/Time of Note Date/Time of Note DATE: 06/09/16 TIME: 10:53 Assessment/Plan VTE Prophylaxis VTE Prophylaxis Intervention: SCD's Lines/Catheters IV Catheter Type (from Nrs): Peripheral IV Urinary Cath still in place: No Assessment/Plan Assessment/Plan 1. Mid brain intracranial hemorrhage with residual weakness, impaired mobility/ gait/ADLs/cognition and dysphagia. Continue PT/OT/ST. Mod assist for transfers. Maintain aspiration precautions. Continue monitoring neurological status for any changes. 2. Uncontrolled DM. Continue to monitor blood sugars, internal medicine managing insulin regimen. 3. Hypertension. BP controlled. Internal medicine has adjusted medications. 4. UTI with ESBL E Coli and Proteus. On antibiotics per internal medicine. On contact isolation. 5. Acute kidney injury. Improved on lab today. Continue to closely monitor. Nephrology has been consulted and further work up has been ordered. PVR checked this morning 18ml. Subjective 24 Hr Interval Summary Free Text/Dictation Rehab progress note Subjective: Denies any acute complaints. Reports feeling better today. ROS: Denies headache, no dizziness, no new visual changes, no new weakness or new paresthesias, denies chest pain, no shortness of breath, no abdominal pain. Exam/Review of Systems Vital Signs Vitals Vital Signs Date Time Temp Pulse Resp B/P Pulse Ox O2 Delivery O2 Flow Rate FiO2 06/09/16 07:30 97.5 58 18 119/73 96 Intake and Output 06/08/16 06/08/16 06/09/16 15:00 23:00 07:00 Intake Total 720 ml Output Total 200 ml Balance 520 ml Exam General: Awake, alert, no acute distress CV: Regular rate, s1s2 Lungs: Respirations are nonlabored with no accessory muscle use, no wheezing Abdomen soft, nontender Extremities without cyanosis, no new swelling Neuro: No new focal changes. Oriented to self, May 2016, and [facility]". Results Result Diagram: 06/09/16 0645 06/09/16 0645 Results 24 hrs Laboratory Tests Test 06/08/16 12:28 06/08/16 17:24 06/08/16 20:29 06/09/16 02:19 Bedside Glucose 242 H 138 211 139 Test 06/09/16 06:45 06/09/16 07:21 Anion Gap 20 H Basophils # 0.1 Basophils % 0.9 Blood Urea Nitrogen 67 H Calcium Level 9.4 Carbon Dioxide Level 26 Chloride Level 99 Creatinine 1.63 H Eosinophils # 0.2 Eosinophils % 2.5 Glucose Level 164 Hematocrit 47.4 H Hemoglobin 15.9 Lymphocytes # 3.4 H Lymphocytes % 37.1 Magnesium Level 2.6 H Mean Corpuscular Hemoglobin 30.6 Mean Corpuscular Hemoglobin Concent 33.5 Mean Corpuscular Volume 91.3 Mean Platelet Volume 10.9 H Monocytes # 0.7 Monocytes % 7.5 Neutrophils # 4.8 Neutrophils % 51.7 Nucleated Red Blood Cells # 0.0 Nucleated Red Blood Cells % 0.0 Platelet Count 363 Potassium Level 4.4 Red Blood Count 5.19 Red Cell Distribution Width 13.2 Sodium Level 141 White Blood Count 9.3 Bedside Glucose 145 Medications Medications Current Medications Acetaminophen (Tylenol Tab) 650 mg Q4H PRN PO PAIN AND OR ELEVATED TEMP Last administered on 06/08/16 17:21; Admin Dose 650 MG; Start 06/05/16 at 22:30 Atorvastatin Calcium (Lipitor) 80 mg HS PO Last administered on 06/08/16 20:50 ; Admin Dose 80 MG; Start 06/06/16 at 21:00 Docusate Sodium (Colace) 100 mg BID PO Last administered on 06/09/16 09:03; Admin Dose 100 MG; Start 06/06/16 at 09:00 Senna (Senokot) 1 tab HS PO Last administered on 06/08/16 20:50; Admin Dose 1 TAB; Start 06/06/16 at 21:00 Magnesium Hydroxide (Milk Of Mag) 30 ml BID PRN PO CONSTIPATION Last administered on 06/07/16 08:27; Admin Dose 30 ML; Start 06/05/16 at 22:30 Lactulose (Enulose) 20 gm DAILY PRN PO CONSTIPATION; Start 06/05/16 at 22:30 Bisacodyl (Dulcolax Supp) 10 mg DAILY PRN [place] CONSTIPATION; Start 06/05/16 at 22 :30 Miscellaneous Information 1 ea NOTE XX ; Start 06/05/16 at 23:00 Glucose (Glutose) 15 gm Q15M PRN PO DECREASED GLUCOSE; Start 06/05/16 at 23:00 Glucose (Glutose) 22.5 gm Q15M PRN PO DECREASED GLUCOSE; Start 06/05/16 at 23: 00 Dextrose (D50w Syringe) 25 ml Q15M PRN IV DECREASED GLUCOSE; Start 06/05/16 at 23:00 Dextrose (D50w Syringe) 50 ml Q15M PRN IV DECREASED GLUCOSE; Start 06/05/16 at 23:00 Glucagon (Glucagen) 1 mg Q15M PRN IM DECREASED GLUCOSE; Start 06/05/16 at 23:00 Glucose (Glutose) 15 gm Q15M PRN BUCCAL DECREASED GLUCOSE; Start 06/05/16 at 23 :00 Diagnostic Test (Pha) (Accucheck) 1 ea 02 XX Last administered on 06/07/16 02: 05; Admin Dose 1 EA; Start 06/06/16 at 02:00 Metoprolol Tartrate (Lopressor) 50 mg BID PO Last administered on 06/08/16 20: 50; Admin Dose 50 MG; Start 06/06/16 at 21:00 Ondansetron HCl (Zofran Inj) 4 mg Q6H PRN IV NAUSEA AND/OR VOMITING; Start at 15:00 Insulin Glargine (Lantus) 18 unit DAILY@08 SC Last administered on 06/09/16 09 :03; Admin Dose 18 UNIT; Start 06/09/16 at 08:00 Lisinopril (Zestril) 20 mg DAILY PO ; Start 06/09/16 at 09:00 Nifedipine 60 mg 60 mg BID PO Last administered on 06/09/16 09:03; Admin Dose 60 MG; Start 06/08/16 at 21:00 Sodium Chloride 1,000 ml @ 60 mls/hr [id number] IV Last administered on 17:21; Admin Dose 60 MLS/HR; Start 06/08/16 at 15:00 Ertapenem/Sodium Chloride (Invanz/NS) 100 ml @ 200 mls/hr Q24H IVPB ; Start at 12:00 NIDHI COHEN Jun 09, 2016 10:58
[2016-06-09] MEDS: SOD CHLORIDE 0.45% 1,000 ML IV SCH (11:05)
[2016-06-09] MEDS ORDERED: ERTAPENEM SODIUM 0.5 GM in SOD CHLORIDE 0.9% 100 ML IVPB SCH (12:00)
--- NOTE | 2016-06-09 12:06 | RADRPT ---
PROCEDURE: Retroperitoneal ultrasound. CLINICAL INDICATION: Acute renal failure TECHNIQUE: Loving scale and color doppler ultrasound images of the retroperitoneum, kidneys, urinary bladder COMPARISON: No prior studies are available for comparison. FINDINGS: Right kidney 10.7 cm in length. Right renal cortical thickness is preserved. Left kidney 11.3 cm in length. Left renal cortical thickness is preserved. Normal echogenicity. Mild left-sided pelviectasis without caliectasis. No renal calculi. No focal lesions. Bladder: No focal lesions. IMPRESSION: Mild left-sided pelviectasis without caliectasis may be due to partially extrarenal variant or minim al hydronephrosis. No renal calculi are seen. RPTAT: AADD .Felice Kauffman MD, Date Time Electronically viewed and signed by .Felice Kauffman MD, on 06/09/2016 12:06 .B/
[2016-06-09 13:56] LABS: ADD UMIC YES; URINE BILIRUBIN (Dip) NEGATIVE (NEGATIVE); URINE BLOOD (Dip) NEGATIVE (NEGATIVE); URINE COLOR LT. YELLOW (YELLOW); URINE KETONES (Dip) NEGATIVE (NEGATIVE); URINE LEUKOCYTE ESTERASE (Dip) 1+ (NEGATIVE); URINE NITRITE (Dip) NEGATIVE (NEGATIVE); URINE TOTAL PROTEIN (Dip) NEGATIVE (NEGATIVE); URINE UROBILINOGEN (Dip) 0.2 E.U./dL (0.1-1.0)
--- NOTE | 2016-06-09 14:04 | PN ---
Date/Time of Note Date/Time of Note DATE: 06/09/16 TIME: 14:03 Assessment/Plan VTE Prophylaxis VTE Prophylaxis Intervention: SCD's, other Lines/Catheters IV C[facility] Type [facility]from [facility] Peripheral IV Urinary Cath still in place: No Assessment/Plan Chief Complaint/Hosp Course ASSESSMENT AND PLAN: 1. Subacute mid brain bleed. The patient will be continued on physical therapy , occupational therapy and speech therapy during this course of acute rehabilitation 2. Essential hypertension. Well-controlled on nifedipine, benazepril and Lopressor 3. Diabetes mellitus. continue Lantus, low-carb diet 4. Dyslipidemia. 5. History of noncompliance with medical management. 6. Acute renal insufficiency. Avoid nephrotoxins and meds, nephrology has been consulted, patient has been started on IV fluid, benazepril has been decreased from 40 mg to 20 mg daily 7. Transaminitis. Continue to monitor PLAN: For deep venous thrombosis prophylaxis, on SCDs. Refrain from using any pharmacologic DVT prophylaxis secondary to intracranial hemorrhage. We will continue monitor patient closely for recommendation management treatment as clinical course Problems: Subjective 24 Hr Interval Summary Free Text/Dictation No acute changes Patient is max assist with ambulation and activity No nausea vomiting diarrhea Denies any chest pain or shortness of breath Tolerating oral intake Exam/Review of Systems Vital Signs Vitals Vital Signs Date Time Temp Pulse Resp B/P Pulse Ox O2 Delivery O2 Flow Rate FiO2 06/09/16 07:30 97.5 58 18 119/73 96 Intake and Output 06/08/16 06/08/16 06/09/16 15:00 23:00 07:00 Intake Total 720 ml Output Total 200 ml Balance 520 ml Exam General: The patient is well-developed, Not in acute distress. HEENT: Atraumatic, normocephalic. The pupils are equal and round . Neck: Supple with full range of motion. Chest: Normal expansion of the thorax during inspiration Lungs: Clear to auscultation bilaterally Heart: Normal S1-S2, Regular rhythm and rate. Abdomen: Soft , nontender, nondistended , bowel sounds are present. Extremities: Left-sided upper and lower extremity weakness, no edema no cyanosis Neurologic: ,The patient is awake, alert Results Result Diagram: 06/09/16 0645 06/09/16 0645 Results 24 hrs Laboratory Tests Test 06/08/16 17:24 06/08/16 20:29 06/09/16 02:19 06/09/16 06:45 Bedside Glucose 138 211 139 Anion Gap 20 H Basophils # 0.1 Basophils % 0.9 Blood Urea Nitrogen 67 H Calcium Level 9.4 Carbon Dioxide Level 26 Chloride Level 99 Creatinine 1.63 H Eosinophils # 0.2 Eosinophils % 2.5 Glucose Level 164 Hematocrit 47.4 H Hemoglobin 15.9 Lymphocytes # 3.4 H Lymphocytes % 37.1 Magnesium Level 2.6 H Mean Corpuscular Hemoglobin 30.6 Mean Corpuscular Hemoglobin Concent 33.5 Mean Corpuscular Volume 91.3 Mean Platelet Volume 10.9 H Monocytes # 0.7 Monocytes % 7.5 Neutrophils # 4.8 Neutrophils % 51.7 Nucleated Red Blood Cells # 0.0 Nucleated Red Blood Cells % 0.0 Platelet Count 363 Potassium Level 4.4 Red Blood Count 5.19 Red Cell Distribution Width 13.2 Sodium Level 141 White Blood Count 9.3 Test 06/09/16 07:21 06/09/16 11:54 06/09/16 13:35 Bedside Glucose 145 312 H Urine Bilirubin NEGATIVE Urine Clarity CLEAR Urine Color LT. YELLOW Urine Glucose 0.25% H Urine Hemoglobin NEGATIVE Urine Ketones NEGATIVE Urine Leukocyte Esterase 1+ H Urine Microscopic RBC Pending Urine Microscopic WBC Pending Urine Nitrite NEGATIVE Urine Specific [place] 1.010 Urine Total Protein NEGATIVE Urine Urobilinogen 0.2 E.U./dL Urine pH 6.0 Medications Medications Current Medications Acetaminophen (Tylenol Tab) 650 mg Q4H PRN PO PAIN AND OR ELEVATED TEMP Last administered on 06/08/16 17:21; Admin Dose 650 MG; Start 06/05/16 at 22:30 Atorvastatin Calcium (Lipitor) 80 mg HS PO Last administered on 06/08/16 20:50 ; Admin Dose 80 MG; Start 06/06/16 at 21:00 Docusate Sodium (Colace) 100 mg BID PO Last administered on 06/09/16 09:03; Admin Dose 100 MG; Start 06/06/16 at 09:00 Senna (Senokot) 1 tab HS PO Last administered on 06/08/16 20:50; Admin Dose 1 TAB; Start 06/06/16 at 21:00 Magnesium Hydroxide (Milk Of Mag) 30 ml BID PRN PO CONSTIPATION Last administered on 06/07/16 08:27; Admin Dose 30 ML; Start 06/05/16 at 22:30 Lactulose (Enulose) 20 gm DAILY PRN PO CONSTIPATION; Start 06/05/16 at 22:30 Bisacodyl (Dulcolax Supp) 10 mg DAILY PRN [place] CONSTIPATION; Start 06/05/16 at 22 :30 Miscellaneous Information 1 ea NOTE XX ; Start 06/05/16 at 23:00 Glucose (Glutose) 15 gm Q15M PRN PO DECREASED GLUCOSE; Start 06/05/16 at 23:00 Glucose (Glutose) 22.5 gm Q15M PRN PO DECREASED GLUCOSE; Start 06/05/16 at 23: 00 Dextrose (D50w Syringe) 25 ml Q15M PRN IV DECREASED GLUCOSE; Start 06/05/16 at 23:00 Dextrose (D50w Syringe) 50 ml Q15M PRN IV DECREASED GLUCOSE; Start 06/05/16 at 23:00 Glucagon (Glucagen) 1 mg Q15M PRN IM DECREASED GLUCOSE; Start 06/05/16 at 23:00 Glucose (Glutose) 15 gm Q15M PRN BUCCAL DECREASED GLUCOSE; Start 06/05/16 at 23 :00 Diagnostic Test (Pha) (Accucheck) 1 ea 02 XX Last administered on 06/07/16 02: 05; Admin Dose 1 EA; Start 06/06/16 at 02:00 Metoprolol Tartrate (Lopressor) 50 mg BID PO Last administered on 06/08/16 20: 50; Admin Dose 50 MG; Start 06/06/16 at 21:00 Ondansetron HCl (Zofran Inj) 4 mg Q6H PRN IV NAUSEA AND/OR VOMITING; Start at 15:00 Insulin Glargine (Lantus) 18 unit DAILY@08 SC Last administered on 06/09/16 09 :03; Admin Dose 18 UNIT; Start 06/09/16 at 08:00 Lisinopril (Zestril) 20 mg DAILY PO ; Start 06/09/16 at 09:00; Status Future Hold Nifedipine 60 mg 60 mg BID PO Last administered on 06/09/16 09:03; Admin Dose 60 MG; Start 06/08/16 at 21:00 Sodium Chloride 1,000 ml @ 60 mls/hr [id number] IV Last administered on 11:05; Admin Dose 60 MLS/HR; Start 06/08/16 at 15:00 Ertapenem/Sodium Chloride (Invanz/NS) 100 ml @ 200 mls/hr Q24H IVPB Last administered on 06/09/16 11:06; Admin Dose 200 MLS/HR; Start 06/09/16 at 12:00 SCAR BOYER MD Jun 09, 2016 14:04
[2016-06-09 14:06] LABS: BACTERIA,URINE FEW; SQUAMOUS EPITHELIAL CELL,UR FEW; URINE RBCS NONE SEEN /HPF (0)
[2016-06-09 14:19] LABS: PROTEIN URINE 5.6 mg/dl (0.0-9.9)
--- NOTE | 2016-06-09 14:46 | CONS ---
DATE OF ADMISSION: 06/05/2016 DATE OF CONSULTATION: 06/09/2016 REASON FOR CONSULTATION: Acute kidney injury. PHYSICIAN REQUESTING CONSULT: Dr. Mejias. HISTORY OF PRESENT ILLNESS: This is a 45-year-old female with a past medical history of hypertensio n, diabetes, who was admitted to [facility] 05/29/2016 due to blurry vision. The patient a t the time of admission was noted to have systolic pressures of 200. A CT scan of the brain was fou nd to have mid brain intracranial hemorrhage. The patient was admitted to intensive care unit where she was evaluated by neurology and neurosurgery. The patient did not have any surgical interventio n. She was stabilized and transferred to [facility] acute rehab for continued care. In te matt of the patient's renal history, at [facility], patient's creatinine initially on admiss ion was 0/8 mg/dL. During the hospital course, the patient's creatinine increased to approximately 1.2 mg/dL. During that hospital stay, the patient was noted to have significant hemodynamic fluctua tions, and the patient was placed on FLACO inhibitor. The patient herself has no prior history of chr onic kidney disease. There has been no reports of hemoptysis, hematemesis, hematochezia. No frothy urine or rashes. PAST MEDICAL HISTORY: As stated above, history of hypertension, diabetes, recent history of CVA. MEDICATIONS: Patient medications have been reviewed. ALLERGIES: NO KNOWN DRUG ALLERGIES. FAMILY HISTORY: Positive for hypertension. SOCIAL HISTORY: Does not drink or smoke. REVIEW OF SYSTEMS: A 14-point review of systems was conducted. Pertinent positives in HPI. Otherw ise negative. PHYSICAL EXAMINATION: VITAL SIGNS: Blood pressure is 119/73, respiration 18, pulse 58, temperature 97.5. HEENT: Head is normocephalic. NECK: Supple. HEART: Regular rate. LUNGS: Show diminished breath sounds at the base. ABDOMEN: Soft, nontender to palpation. No rebound or guarding. EXTREMITIES: Negative for clubbing, cyanosis, edema. DERMATOLOGIC: No rashes. MUSCULOSKELETAL: No joint effusions. NEUROLOGIC: Patient has left side hemiparesis. LABORATORY DATA: Shows sodium 141, potassium 4.4, chloride 99, BUN 67, creatinine 1.63, magnesium 2 .6. White count 9.3, hemoglobin 15.9, hematocrit 47.4, platelet count 363. The patient's urinalysi s shows 0 to 2 WBCs, 5 to 10 WBCs, squamous epithelial cells many. ASSESSMENT AND PLAN: This is a 45-year-old female who presents with: 1. Nonoliguric acute kidney injury with previous baseline creatinine of 0.8 mg/dL. Etiology is lik elma multifactorial secondary to hemodynamics, FLACO inhibitor effect, possible tubular injury due to h ypertensive urgency. The patient's current urinalysis shows no evidence of active sediment. The pa ericka's renal function has improved in the last 24 hours after adjusting FLACO inhibitor. Plan at thi s point is to repeat UA with microanalysis. Will check urine electrolytes, calculate a , fract ion excretion of urea. Will check a microalbumin and an albumin/creatinine ratio. Will discontinue the patient's FLACO inhibitor. Agree with gentle IV hydration at this time. Will get a renal ultras ound to evaluate renal parenchyma. Will otherwise continue supportive care, renally dose meds, avoi d nephrotoxins. Would recommend to avoid significant hemodynamic fluctuations. Please also note th at diuretic therapy may have been a contributing factor. Agree with discontinuing hydrochlorothiazi de. 2. Mineral bone disorder. Will monitor calcium and phosphorus levels. Will check PTH, vitamin D25 level. 3. Hypertension. Blood pressure currently controlled. Continue current blood pressure regimen. W e will hold FLACO inhibitors in the setting of acute kidney injury. 4. Acute cerebrovascular accident with left-sided hemiparesis. Continue current medical management . Continue PT, OT. 5. Diabetes. Continue current insulin regimen. 6. Urinary tract infection; ESBL. The patient is currently on antibiotic therapy. Will continue. 7. Dyslipidemia. Continue statin therapy. Thank you, Dr. Mejias, for this interesting consult. It will be a pleasure to follow patient wit lalo hawkins throughout the hospital course. Dictated By: TEO NGUYEN/APRYL Conf#: [id number] DID#: [id number]
[2016-06-09 19:41] VITALS: BP 143/81; RESP 18
[2016-06-09] MEDS: ATORVASTATIN 80 MG TAB PO SCH (20:22)
[2016-06-09] MEDS: SENNA TAB PO SCH (20:23)
[2016-06-10] MEDS: SOD CHLORIDE 0.45% 1,000 ML IV SCH ×2 (00:20→03:38)
[2016-06-10] MEDS: ACCUCHECK AT 2AM (Patients on SS coverage) XX SCH (02:39)
[2016-06-10 07:01] LABS: ADD SCAN DIFF NO
[2016-06-10 07:10] LABS: BASOPHIL # 0.1 10^3/ul (0.0-0.1); BASOPHILS % 0.9 % (0.0-2.0); EOSINOPHILS # 0.2 10^3/ul (0.0-0.5); EOSINOPHILS % 2.8 % (0.0-7.0); HEMATOCRIT 46.5 % (37.0-47.0); HEMOGLOBIN 15.7 g/dl (12.0-16.0); LYMPHOCYTES # 3.8 10^3/ul (0.8-2.9); LYMPHOCYTES % 44.5 % (15.0-51.0); MEAN CORPUSCULAR HEMOGLOBIN 30.7 pg (29.0-33.0); MEAN CORPUSCULAR HGB CONC 33.8 g/dl (32.0-37.0); MONOCYTE # 0.6 10^3/ul (0.3-0.9); MONOCYTES % 7.4 % (0.0-11.0); NEUTROPHIL # 3.8 10^3/ul (1.6-7.5); NEUTROPHILS % 44.2 % (39.0-77.0); PLATELET COUNT 343 10^3/UL (140-415); RED BLOOD COUNT 5.11 10^6/ul (4.20-5.40); WHITE BLOOD COUNT 8.6 10^3/ul (4.8-10.8)
[2016-06-10 07:25] LABS: POTASSIUM 4.6 mmol/L (3.5-5.1)
[2016-06-10 07:27] LABS: CREATININE 1.19 mg/dl (0.44-1.00)
[2016-06-10 07:28] LABS: CALCIUM 9.4 mg/dl (8.4-10.2); MAGNESIUM 2.3 mg/dl (1.7-2.5)
[2016-06-10 07:30] VITALS: BP 126/61; RESP 18
[2016-06-10] MEDS: Insulin NOVOLOG SS MILD Algorithm (SS with meals and bedtime) SC SCH ×4 (08:41→21:00)
[2016-06-10] MEDS: INSULIN GLARGINE [LANtus] 3 ML PEN SC SCH (08:42)
[2016-06-10] MEDS: METOPROLOL 50 MG TAB PO SCH ×2 (08:43→20:54)
[2016-06-10] MEDS: DOCUSATE SODIUM 100 MG CAP PO SCH ×2 (08:43→21:00)
[2016-06-10] MEDS: NIFEdipine (XL) 60 MG TAB PO SCH ×2 (08:44→20:53)
--- NOTE | 2016-06-10 12:19 | PN ---
DATE: 06/10/2016 SUBJECTIVE: The patient is stable, no acute events overnight. No fevers, chills, nausea, vomiting, no shortness of breath. OBJECTIVE: VITAL SIGNS: Blood pressure is 126/61, respirations 18, pulse 67, temperature 97.9. HEENT: Head is normocephalic. NECK: Supple. HEART: Regular rate. LUNGS: Show diminished breath sounds at the base. ABDOMEN: Soft, nontender to palpation. No rebound or guarding. EXTREMITIES: Negative for clubbing, cyanosis, no edema. DERMATOLOGIC: No rashes. MUSCULOSKELETAL: No joint effusions. NEUROLOGIC: No change in exam. MEDICATIONS: The patient's medications have been reviewed. LABORATORY DATA: Shows a sodium 140, potassium 4.6, chloride 101, BUN 53, creatinine 1.19. White c ount is 8.6, hemoglobin 15.7, hematocrit of 46.5, platelet count is 343. Renal ultrasound shows nor mal renal parenchyma. The patient's urinalysis shows no active sediment, no proteinuria. ASSESSMENT AND PLAN: 1. Nonoliguric acute kidney injury with previous baseline creatinine 0.8 mg/dL. Etiology of acute kidney injury is likely due to hemodynamics, FLACO inhibitor effect. The patient's urinalysis shows n o active sediment. Renal ultrasound shows no evidence of obstruction, normal renal parenchyma. The patient's renal function has been improving with holding FLACO inhibitor, and with gentle IV hydratio n. Plan at this point is to continue current treatment plan. Continue supportive care, renally dos e all meds, avoid nephrotoxins. Will discontinue IV fluids and monitor. 2. Mineral bone disorder. Continue to monitor calcium and phosphorus levels. 3. Hypertension. Blood pressure currently controlled. Continue to monitor. 4. Acute cerebrovascular accident with left-sided hemiparesis. Continue physical therapy. 5. Diabetes. Continue Accu-Cheks and insulin sliding scale. 6. Urinary tract infection with extended-spectrum beta-lactamase. Continue current antibiotic josé miguel men. 7. Dyslipidemia. Continue statin therapy. Dictated By: TEO NGUYEN/APRYL Conf#: [id number] DID#: [id number]
[2016-06-10] MEDS: ERTAPENEM SODIUM 1 GM in SOD CHLORIDE 0.9% 100 ML IVPB SCH (12:47)
--- NOTE | 2016-06-10 12:51 | CONS ---
Date/Time of Note Date/Time of Note DATE: 06/10/16 TIME: 12:51 Consult Date/Type/Reason Admit Date/Time Jun 05, 2016 at 20:45 Subjective Comfortable Objective Vital Signs Date Time Temp Pulse Resp B/P Pulse Ox O2 Delivery O2 Flow Rate FiO2 06/10/16 07:30 97.9 67 18 126/61 95 Intake and Output 06/09/16 06/09/16 06/10/16 15:00 23:00 07:00 Intake Total 1730 ml 780 ml Balance 1730 ml 780 ml INTERDISCIPLINARY TEAM CONFERENCE BOWEL- Cont BLADDER-Cont SKIN- intact OT- DRESSING-min/mod BATHING-min/mod TOILETING-min/mod PT- BED MOBILITY-mod/max TRANSFERS-mod/max AMBULATION-max 12 feet SPEECH- COGNITION-mod DYPHAGIA A/P- Interdisciplinary team conference held today. Please see interdisciplinary sheet. Working toward d.c. on 06/21 with post discharge follow up of physical therapy, occupational therapy; speech therapy Results/Medications Result Diagram: 06/10/16 0540 06/10/16 0540 Results 24 hrs Laboratory Tests Test 06/09/16 13:35 06/09/16 16:40 06/09/16 20:33 06/10/16 02:02 Urine Bacteria FEW Urine Bilirubin NEGATIVE Urine Clarity HAZY Urine Color LT. YELLOW Urine Glucose 0.25% H Urine Hemoglobin NEGATIVE Urine Ketones NEGATIVE Urine Leukocyte Esterase 1+ H Urine Microscopic RBC NONE SEEN Urine Microscopic WBC 10-25 Urine Nitrite NEGATIVE Urine Random Creatinine 55.05 Urine Random Sodium 64 Urine Specific [place] 1.010 Urine Squamous Epithelial Cells FEW Urine Total Protein 5.6 Urine Urobilinogen 0.2 E.U./dL Urine pH 6.0 Bedside Glucose 274 H 237 H 185 Test 06/10/16 05:40 06/10/16 07:28 06/10/16 11:45 Anion Gap 20 H Basophils # 0.1 Basophils % 0.9 Blood Urea Nitrogen 53 H Calcium Level 9.4 Carbon Dioxide Level 24 Chloride Level 101 Creatinine 1.19 H Eosinophils # 0.2 Eosinophils % 2.8 Glucose Level 166 Hematocrit 46.5 Hemoglobin 15.7 Lymphocytes # 3.8 H Lymphocytes % 44.5 Magnesium Level 2.3 Mean Corpuscular Hemoglobin 30.7 Mean Corpuscular Hemoglobin Concent 33.8 Mean Corpuscular Volume 91.0 Mean Platelet Volume 11.0 H Monocytes # 0.6 Monocytes % 7.4 Neutrophils # 3.8 Neutrophils % 44.2 Nucleated Red Blood Cells # 0.0 Nucleated Red Blood Cells % 0.0 Phosphorus Level 5.0 H Platelet Count 343 Potassium Level 4.6 Red Blood Count 5.11 Red Cell Distribution Width 13.0 Sodium Level 140 White Blood Count 8.6 Bedside Glucose 152 213 Medications Current Medications Acetaminophen (Tylenol Tab) 650 mg Q4H PRN PO PAIN AND OR ELEVATED TEMP Last administered on 06/08/16 17:21; Admin Dose 650 MG; Start 06/05/16 at 22:30 Atorvastatin Calcium (Lipitor) 80 mg HS PO Last administered on 06/09/16 20:22 ; Admin Dose 80 MG; Start 06/06/16 at 21:00 Docusate Sodium (Colace) 100 mg BID PO Last administered on 06/10/16 08:43; Admin Dose 100 MG; Start 06/06/16 at 09:00 Senna (Senokot) 1 tab HS PO Last administered on 06/09/16 20:23; Admin Dose 1 TAB; Start 06/06/16 at 21:00 Magnesium Hydroxide (Milk Of Mag) 30 ml BID PRN PO CONSTIPATION Last administered on 06/07/16 08:27; Admin Dose 30 ML; Start 06/05/16 at 22:30 Lactulose (Enulose) 20 gm DAILY PRN PO CONSTIPATION; Start 06/05/16 at 22:30 Bisacodyl (Dulcolax Supp) 10 mg DAILY PRN [place] CONSTIPATION; Start 06/05/16 at 22 :30 Miscellaneous Information 1 ea NOTE XX ; Start 06/05/16 at 23:00 Glucose (Glutose) 15 gm Q15M PRN PO DECREASED GLUCOSE; Start 06/05/16 at 23:00 Glucose (Glutose) 22.5 gm Q15M PRN PO DECREASED GLUCOSE; Start 06/05/16 at 23: 00 Dextrose (D50w Syringe) 25 ml Q15M PRN IV DECREASED GLUCOSE; Start 06/05/16 at 23:00 Dextrose (D50w Syringe) 50 ml Q15M PRN IV DECREASED GLUCOSE; Start 06/05/16 at 23:00 Glucagon (Glucagen) 1 mg Q15M PRN IM DECREASED GLUCOSE; Start 06/05/16 at 23:00 Glucose (Glutose) 15 gm Q15M PRN BUCCAL DECREASED GLUCOSE; Start 06/05/16 at 23 :00 Diagnostic Test (Pha) (Accucheck) 1 ea 02 XX Last administered on 06/10/16 02: 39; Admin Dose 1 EA; Start 06/06/16 at 02:00 Metoprolol Tartrate (Lopressor) 50 mg BID PO Last administered on 06/10/16 08: 43; Admin Dose 50 MG; Start 06/06/16 at 21:00 Ondansetron HCl (Zofran Inj) 4 mg Q6H PRN IV NAUSEA AND/OR VOMITING; Start at 15:00 Insulin Glargine (Lantus) 18 unit DAILY@08 SC Last administered on 06/10/16 08 :42; Admin Dose 18 UNIT; Start 06/09/16 at 08:00 Lisinopril (Zestril) 20 mg DAILY PO ; Start 06/09/16 at 09:00; Status Future Hold Nifedipine 60 mg 60 mg BID PO Last administered on 06/10/16 08:44; Admin Dose 60 MG; Start 06/08/16 at 21:00 Ertapenem/Sodium Chloride (Invanz/NS) 100 ml @ 200 mls/hr Q24H IVPB ; Start at 12:00 ALEXANDRO MELTON MD Jun 10, 2016 12:51
--- NOTE | 2016-06-10 14:33 | PN ---
Date/Time of Note Date/Time of Note DATE: 06/10/16 TIME: 14:32 Assessment/Plan VTE Prophylaxis VTE Prophylaxis Intervention: SCD's, other Lines/Catheters [facility] IV Urinary Cath still in place: No Reason Cath still needed: other (indicate) Assessment/Plan Chief Complaint/Hosp Course ASSESSMENT AND PLAN: 1. Subacute mid brain bleed. The patient will be continued on physical therapy , occupational therapy and speech therapy during this course of acute rehabilitation 2. Essential hypertension. Well-controlled on nifedipine, benazepril and Lopressor 3. Diabetes mellitus. continue Lantus, low-carb diet 4. Dyslipidemia. 5. History of noncompliance with medical management. 6. Acute renal insufficiency. Avoid nephrotoxins and meds, nephrology has been consulted, patient has been started on IV fluid, benazepril has been decreased from 40 mg to 20 mg daily 7. Transaminitis. Continue to monitor PLAN: For deep venous thrombosis prophylaxis, on SCDs. Refrain from using any pharmacologic DVT prophylaxis secondary to intracranial hemorrhage. We will continue monitor patient closely for recommendation management treatment as clinical course Problems: Subjective 24 Hr Interval Summary Free Text/Dictation Patient denies of any chest pain or shortness of breath Max assist with ambulation Tolerating oral intake Exam/Review of Systems Vital Signs Vitals Vital Signs Date Time Temp Pulse Resp B/P Pulse Ox O2 Delivery O2 Flow Rate FiO2 06/10/16 07:30 97.9 67 18 126/61 95 Intake and Output 06/09/16 06/09/16 06/10/16 15:00 23:00 07:00 Intake Total 1730 ml 780 ml Balance 1730 ml 780 ml Exam General: The patient is well-developed, Not in acute distress. HEENT: Atraumatic, normocephalic. The pupils are equal and round . Neck: Supple with full range of motion. Chest: Normal expansion of the thorax during inspiration Lungs: Clear to auscultation bilaterally Heart: Normal S1-S2, Regular rhythm and rate. Abdomen: Soft , nontender, nondistended , bowel sounds are present. Extremities: Left upper and lower extremity weakness4/5, , no edema no cyanosis Neurologic: The patient is awake, alert Results Result Diagram: 06/10/16 0540 06/10/16 0540 Results 24 hrs Laboratory Tests Test 06/09/16 16:40 06/09/16 20:33 06/10/16 02:02 06/10/16 05:40 Bedside Glucose 274 H 237 H 185 Anion Gap 20 H Basophils # 0.1 Basophils % 0.9 Blood Urea Nitrogen 53 H Calcium Level 9.4 Carbon Dioxide Level 24 Chloride Level 101 Creatinine 1.19 H Eosinophils # 0.2 Eosinophils % 2.8 Glucose Level 166 Hematocrit 46.5 Hemoglobin 15.7 Lymphocytes # 3.8 H Lymphocytes % 44.5 Magnesium Level 2.3 Mean Corpuscular Hemoglobin 30.7 Mean Corpuscular Hemoglobin Concent 33.8 Mean Corpuscular Volume 91.0 Mean Platelet Volume 11.0 H Monocytes # 0.6 Monocytes % 7.4 Neutrophils # 3.8 Neutrophils % 44.2 Nucleated Red Blood Cells # 0.0 Nucleated Red Blood Cells % 0.0 Phosphorus Level 5.0 H Platelet Count 343 Potassium Level 4.6 Red Blood Count 5.11 Red Cell Distribution Width 13.0 Sodium Level 140 White Blood Count 8.6 Test 06/10/16 07:28 06/10/16 11:45 Bedside Glucose 152 213 Medications Medications Current Medications Acetaminophen (Tylenol Tab) 650 mg Q4H PRN PO PAIN AND OR ELEVATED TEMP Last administered on 06/08/16 17:21; Admin Dose 650 MG; Start 06/05/16 at 22:30 Atorvastatin Calcium (Lipitor) 80 mg HS PO Last administered on 06/09/16 20:22 ; Admin Dose 80 MG; Start 06/06/16 at 21:00 Docusate Sodium (Colace) 100 mg BID PO Last administered on 06/10/16 08:43; Admin Dose 100 MG; Start 06/06/16 at 09:00 Senna (Senokot) 1 tab HS PO Last administered on 06/09/16 20:23; Admin Dose 1 TAB; Start 06/06/16 at 21:00 Magnesium Hydroxide (Milk Of Mag) 30 ml BID PRN PO CONSTIPATION Last administered on 06/07/16 08:27; Admin Dose 30 ML; Start 06/05/16 at 22:30 Lactulose (Enulose) 20 gm DAILY PRN PO CONSTIPATION; Start 06/05/16 at 22:30 Bisacodyl (Dulcolax Supp) 10 mg DAILY PRN [place] CONSTIPATION; Start 06/05/16 at 22 :30 Miscellaneous Information 1 ea NOTE XX ; Start 06/05/16 at 23:00 Glucose (Glutose) 15 gm Q15M PRN PO DECREASED GLUCOSE; Start 06/05/16 at 23:00 Glucose (Glutose) 22.5 gm Q15M PRN PO DECREASED GLUCOSE; Start 06/05/16 at 23: 00 Dextrose (D50w Syringe) 25 ml Q15M PRN IV DECREASED GLUCOSE; Start 06/05/16 at 23:00 Dextrose (D50w Syringe) 50 ml Q15M PRN IV DECREASED GLUCOSE; Start 06/05/16 at 23:00 Glucagon (Glucagen) 1 mg Q15M PRN IM DECREASED GLUCOSE; Start 06/05/16 at 23:00 Glucose (Glutose) 15 gm Q15M PRN BUCCAL DECREASED GLUCOSE; Start 06/05/16 at 23 :00 Diagnostic Test (Pha) (Accucheck) 1 ea 02 XX Last administered on 06/10/16 02: 39; Admin Dose 1 EA; Start 06/06/16 at 02:00 Metoprolol Tartrate (Lopressor) 50 mg BID PO Last administered on 06/10/16 08: 43; Admin Dose 50 MG; Start 06/06/16 at 21:00 Ondansetron HCl (Zofran Inj) 4 mg Q6H PRN IV NAUSEA AND/OR VOMITING; Start at 15:00 Insulin Glargine (Lantus) 18 unit DAILY@08 SC Last administered on 06/10/16 08 :42; Admin Dose 18 UNIT; Start 06/09/16 at 08:00 Lisinopril (Zestril) 20 mg DAILY PO ; Start 06/09/16 at 09:00; Status Future Hold Nifedipine 60 mg 60 mg BID PO Last administered on 06/10/16 08:44; Admin Dose 60 MG; Start 06/08/16 at 21:00 Ertapenem/Sodium Chloride (Invanz/NS) 100 ml @ 200 mls/hr Q24H IVPB Last administered on 06/10/16 12:47; Admin Dose 200 MLS/HR; Start 06/10/16 at 12:00 SCAR BOYER MD Jun 10, 2016 14:33
[2016-06-10 15:26] LABS: MICROALBUMIN 1.2 mg/dL
[2016-06-10 20:44] VITALS: BP 144/81; RESP 18
[2016-06-10] MEDS: ATORVASTATIN 80 MG TAB PO SCH (20:53)
[2016-06-10] MEDS: SENNA TAB PO SCH (21:00)
[2016-06-11] MEDS: ACCUCHECK AT 2AM (Patients on SS coverage) XX SCH (02:00)
[2016-06-11] MEDS: Insulin NOVOLOG SS MILD Algorithm (SS with meals and bedtime) SC SCH ×4 (07:05→20:50)
[2016-06-11 07:21] LABS: POTASSIUM 4.5 mmol/L (3.5-5.1)
[2016-06-11 07:24] LABS: CREATININE 1.03 mg/dl (0.44-1.00)
[2016-06-11 07:25] LABS: CALCIUM 9.7 mg/dl (8.4-10.2)
[2016-06-11 08:00] VITALS: BP 149/93; PULSE 78; RESP 19
[2016-06-11] MEDS: NIFEdipine (XL) 60 MG TAB PO SCH ×2 (08:43→20:49)
[2016-06-11] MEDS: DOCUSATE SODIUM 100 MG CAP PO SCH ×2 (08:43→20:48)
[2016-06-11] MEDS: METOPROLOL 50 MG TAB PO SCH ×2 (08:44→20:49)
[2016-06-11] MEDS: INSULIN GLARGINE [LANtus] 3 ML PEN SC SCH (08:47)
--- NOTE | 2016-06-11 11:06 | CONS ---
Date/Time of Note Date/Time of Note DATE: 06/11/16 TIME: 11:04 Consult Date/Type/Reason Admit Date/Time Jun 05, 2016 at 20:45 Subjective no new complaints Objective Vital Signs Date Time Temp Pulse Resp B/P Pulse Ox O2 Delivery O2 Flow Rate FiO2 06/10/16 20:44 98.3 70 18 144/81 98 Intake and Output 06/10/16 06/10/16 06/11/16 15:00 23:00 07:00 Intake Total 340 ml 680 ml 1240 ml Output Total 351 ml Balance 340 ml 329 ml 1240 ml pulm- cta card- s1s2 min/mod WC propulsion max ambulation Results/Medications Result Diagram: 06/10/16 0540 06/11/16 0629 Results 24 hrs Laboratory Tests Test 06/10/16 11:45 06/10/16 17:15 06/10/16 20:29 06/11/16 06:29 Bedside Glucose 213 131 159 Anion Gap 18 H Blood Urea Nitrogen 35 #H Calcium Level 9.7 Carbon Dioxide Level 27 Chloride Level 102 Creatinine 1.03 H Glucose Level 133 Potassium Level 4.5 Sodium Level 142 Test 06/11/16 07:58 Bedside Glucose 132 Medications Current Medications Acetaminophen (Tylenol Tab) 650 mg Q4H PRN PO PAIN AND OR ELEVATED TEMP Last administered on 06/08/16 17:21; Admin Dose 650 MG; Start 06/05/16 at 22:30 Atorvastatin Calcium (Lipitor) 80 mg HS PO Last administered on 06/10/16 20:53 ; Admin Dose 80 MG; Start 06/06/16 at 21:00 Docusate Sodium (Colace) 100 mg BID PO Last administered on 06/11/16 08:43; Admin Dose 100 MG; Start 06/06/16 at 09:00 Senna (Senokot) 1 tab HS PO Last administered on 06/09/16 20:23; Admin Dose 1 TAB; Start 06/06/16 at 21:00 Magnesium Hydroxide (Milk Of Mag) 30 ml BID PRN PO CONSTIPATION Last administered on 06/07/16 08:27; Admin Dose 30 ML; Start 06/05/16 at 22:30 Lactulose (Enulose) 20 gm DAILY PRN PO CONSTIPATION; Start 06/05/16 at 22:30 Bisacodyl (Dulcolax Supp) 10 mg DAILY PRN [place] CONSTIPATION; Start 06/05/16 at 22 :30 Miscellaneous Information 1 ea NOTE XX ; Start 06/05/16 at 23:00 Glucose (Glutose) 15 gm Q15M PRN PO DECREASED GLUCOSE; Start 06/05/16 at 23:00 Glucose (Glutose) 22.5 gm Q15M PRN PO DECREASED GLUCOSE; Start 06/05/16 at 23: 00 Dextrose (D50w Syringe) 25 ml Q15M PRN IV DECREASED GLUCOSE; Start 06/05/16 at 23:00 Dextrose (D50w Syringe) 50 ml Q15M PRN IV DECREASED GLUCOSE; Start 06/05/16 at 23:00 Glucagon (Glucagen) 1 mg Q15M PRN IM DECREASED GLUCOSE; Start 06/05/16 at 23:00 Glucose (Glutose) 15 gm Q15M PRN BUCCAL DECREASED GLUCOSE; Start 06/05/16 at 23 :00 Diagnostic Test (Pha) (Accucheck) 1 ea 02 XX Last administered on 06/10/16 02: 39; Admin Dose 1 EA; Start 06/06/16 at 02:00 Metoprolol Tartrate (Lopressor) 50 mg BID PO Last administered on 06/11/16 08: 44; Admin Dose 50 MG; Start 06/06/16 at 21:00 Ondansetron HCl (Zofran Inj) 4 mg Q6H PRN IV NAUSEA AND/OR VOMITING; Start at 15:00 Insulin Glargine (Lantus) 18 unit DAILY@08 SC Last administered on 06/11/16 08 :47; Admin Dose 18 UNIT; Start 06/09/16 at 08:00 Lisinopril (Zestril) 20 mg DAILY PO ; Start 06/09/16 at 09:00; Status Future Hold Nifedipine 60 mg 60 mg BID PO Last administered on 06/11/16 08:43; Admin Dose 60 MG; Start 06/08/16 at 21:00 Ertapenem/Sodium Chloride (Invanz/NS) 100 ml @ 200 mls/hr Q24H IVPB Last administered on 06/10/16 12:47; Admin Dose 200 MLS/HR; Start 06/10/16 at 12:00 Assessment/Plan Additional Assessment/Plan 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
--- NOTE | 2016-06-11 11:13 | PN ---
DATE: 06/11/2016 SUBJECTIVE: The patient is stable, no acute events overnight. No fevers, chills, nausea, vomiting, no shortness of breath. OBJECTIVE: VITAL SIGNS: Blood pressure 144/81, respiration 18, pulse 70, temperature 98.3. HEENT: Head is normocephalic. NECK: Supple. HEART: Regular rate. LUNGS: Show diminished breath sounds at the base. ABDOMEN: Soft, nontender to palpation. No rebound or guarding. EXTREMITIES: Negative for clubbing, cyanosis, or edema. DERMATOLOGIC: No rashes. MUSCULOSKELETAL: No joint effusions. NEUROLOGIC: No change in exam. MEDICATIONS: The patient's medications have been reviewed. LABORATORY DATA: Shows sodium 142, potassium 4.5, chloride 102, BUN 35, creatinine 1.03. ASSESSMENT AND PLAN: 1. Nonoliguric acute kidney injury with previous baseline creatinine 0.8 mg/dL. Etiology of acute kidney injury is secondary to hemodynamics, FLACO inhibitor effect. The patient's renal function has been improving. At this point, continue current treatment plan, supportive care, renally dose medic ations. 2. Mineral bone disorder. Continue to monitor calcium and phosphorus levels. 3. Hypertension. Continue current blood pressure regimen. 4. Acute cerebrovascular accident with left-sided hemiparesis. Continue physical therapy. 5. Diabetes. Continue current insulin regimen. 6. Urinary tract infection. Continue current antibiotic regimen. 7. Dyslipidemia. Continue statin therapy. Dictated By: TEO NGUYEN/APRYL Conf#: [id number] DID#: [id number]
[2016-06-11] MEDS: ERTAPENEM SODIUM 1 GM in SOD CHLORIDE 0.9% 100 ML IVPB SCH (12:27)
[2016-06-11 20:00] VITALS: BP 157/94; RESP 18
[2016-06-11] MEDS: SENNA TAB PO SCH (20:48)
[2016-06-11] MEDS: ATORVASTATIN 80 MG TAB PO SCH (20:48)
[2016-06-12] MEDS: ACCUCHECK AT 2AM (Patients on SS coverage) XX SCH (02:40)
[2016-06-12] MEDS: Insulin NOVOLOG SS MILD Algorithm (SS with meals and bedtime) SC SCH ×4 (07:05→21:00)
[2016-06-12 07:30] VITALS: BP 152/90; RESP 18
[2016-06-12] MEDS: DOCUSATE SODIUM 100 MG CAP PO SCH ×2 (08:14→21:18)
[2016-06-12] MEDS: METOPROLOL 50 MG TAB PO SCH ×2 (08:15→21:20)
[2016-06-12] MEDS: NIFEdipine (XL) 60 MG TAB PO SCH ×2 (08:15→21:19)
[2016-06-12] MEDS: INSULIN GLARGINE [LANtus] 3 ML PEN SC SCH (08:18)
--- NOTE | 2016-06-12 11:20 | PN ---
DATE: 06/12/2016 SUBJECTIVE: The patient is stable, no acute events overnight. No fevers, chills, nausea, vomiting, no shortness of breath. OBJECTIVE: VITAL SIGNS: Blood pressure 157/94, respiration 18, pulse 85, temperature 98.4. HEENT: Head is normocephalic. NECK: Supple. HEART: Regular rate. LUNGS: Show diminished breath sounds at the base. ABDOMEN: Soft, nontender to palpation without rebound or guarding. EXTREMITIES: Negative for clubbing, cyanosis. No edema. DERMATOLOGIC: No rashes. MUSCULOSKELETAL: No joint effusions. NEUROLOGIC: No change in exam. MEDICATIONS: The patient's medications have been reviewed. LABORATORY DATA: Reviewed. No new abs. ASSESSMENT AND PLAN: 1. Nonoliguric acute kidney injury with previous baseline creatinine of 0.8 mg/dL. Etiology of acu te kidney injury is secondary to hemodynamics, FLACO inhibitor effect. The patient's renal function i s improved. Continue current treatment plan, supportive care, renally dose all meds. 2. Mineral bone disorder. Continue to monitor calcium and phosphorus levels. 3. Hypertension, improving. Continue current blood pressure regimen. 4. Acute cerebrovascular accident with right-sided hemiparesis. Continue physical therapy and occu pational therapy. 5. Diabetes. Continue Accu-Cheks and sliding scale. 6. Urinary tract infection. Continue current antibiotic regimen. 7. Dyslipidemia. Continue statin therapy. Dictated By: TEO NGUYEN/APRYL Conf#: [id number] DID#: [id number]
--- NOTE | 2016-06-12 12:14 | PN ---
Date/Time of Note Date/Time of Note DATE: 06/12/16 TIME: 12:12 Assessment/Plan VTE Prophylaxis VTE Prophylaxis Intervention: SCD's, other (ambulation ) Lines/Catheters [facility] Peripheral IV Urinary Cath still in place: No Assessment/Plan Assessment/Plan 1. CORI with previous normal baseline Creatinine- Etiology of acute kidney injury is secondary to hemodynamics, FLACO inhibitor effect. The patient's renal function is improved. Continue current treatment plan, supportive care, 2. Mineral bone disorder. Continue to monitor calcium and phosphorus levels. 3. Hypertension, improving. Continue current blood pressure regimen. 4. Acute cerebrovascular accident with right-sided hemiparesis. Continue physical therapy and occupational therapy. 5. Diabetes. Continue Accu-Cheks and sliding scale. 6. Urinary tract infection with Urine cx growing ESBL - on IV Invanz 7. Dyslipidemia. Continue statin therapy. SCD for DVT prophylaxis, D/c planning next week Subjective 24 Hr Interval Summary Free Text/Dictation no acute, had a bedside, PT, afebrile, BP stable Exam/Review of Systems Vital Signs Vitals Vital Signs Date Time Temp Pulse Resp B/P Pulse Ox O2 Delivery O2 Flow Rate FiO2 06/11/16 20:00 98.4 85 18 157/94 94 06/11/16 08:00 Room Air Intake and Output 06/11/16 06/11/16 06/12/16 15:00 23:00 07:00 Intake Total 700 ml Balance 700 ml Exam HEENT: Head is normocephalic. NECK: Supple. HEART: Regular rate. LUNGS: Show diminished breath sounds at the base. ABDOMEN: Soft, nontender to palpation without rebound or guarding. EXTREMITIES: Negative for clubbing, cyanosis. No edema. DERMATOLOGIC: No rashes. MUSCULOSKELETAL: No joint effusions. NEUROLOGIC: No change in exam. Results Result Diagram: 06/10/16 0540 06/11/16 0629 Results 24 hrs Laboratory Tests Test 06/11/16 17:08 06/11/16 20:46 06/12/16 02:35 06/12/16 07:29 Bedside Glucose 148 200 122 127 Medications Medications Current Medications Acetaminophen (Tylenol Tab) 650 mg Q4H PRN PO PAIN AND OR ELEVATED TEMP Last administered on 06/08/16t 17:21; Admin Dose 650 MG; Start 06/05/16 at 22:30 Atorvastatin Calcium (Lipitor) 80 mg HS PO Last administered on 06/11/16 20:48 ; Admin Dose 80 MG; Start 06/06/16 at 21:00 Docusate Sodium (Colace) 100 mg BID PO Last administered on 06/12/16 08:14; Admin Dose 100 MG; Start 06/06/16 at 09:00 Senna (Senokot) 1 tab HS PO Last administered on 06/11/16 20:48; Admin Dose 1 TAB; Start 06/06/16 at 21:00 Magnesium Hydroxide (Milk Of Mag) 30 ml BID PRN PO CONSTIPATION Last administered on 06/07/16 08:27; Admin Dose 30 ML; Start 06/05/16 at 22:30 Lactulose (Enulose) 20 gm DAILY PRN PO CONSTIPATION; Start 06/05/16 at 22:30 Bisacodyl (Dulcolax Supp) 10 mg DAILY PRN [place] CONSTIPATION; Start 06/05/16 at 22 :30 Miscellaneous Information 1 ea NOTE XX ; Start 06/05/16 at 23:00 Glucose (Glutose) 15 gm Q15M PRN PO DECREASED GLUCOSE; Start 06/05/16 at 23:00 Glucose (Glutose) 22.5 gm Q15M PRN PO DECREASED GLUCOSE; Start 06/05/16 at 23: 00 Dextrose (D50w Syringe) 25 ml Q15M PRN IV DECREASED GLUCOSE; Start 06/05/16 at 23:00 Dextrose (D50w Syringe) 50 ml Q15M PRN IV DECREASED GLUCOSE; Start 06/05/16 at 23:00 Glucagon (Glucagen) 1 mg Q15M PRN IM DECREASED GLUCOSE; Start 06/05/16 at 23:00 Glucose (Glutose) 15 gm Q15M PRN BUCCAL DECREASED GLUCOSE; Start 06/05/16 at 23 :00 Diagnostic Test (Pha) (Accucheck) 1 ea 02 XX Last administered on 06/12/16 02: 40; Admin Dose 1 EA; Start 06/06/16 at 02:00 Metoprolol Tartrate (Lopressor) 50 mg BID PO Last administered on 06/12/16 08: 15; Admin Dose 50 MG; Start 06/06/16 at 21:00 Ondansetron HCl (Zofran Inj) 4 mg Q6H PRN IV NAUSEA AND/OR VOMITING; Start at 15:00 Insulin Glargine (Lantus) 18 unit DAILY@08 SC Last administered on 06/12/16 08: 18; Admin Dose 18 UNIT; Start 06/09/16 at 08:00 Lisinopril (Zestril) 20 mg DAILY PO ; Start 06/09/16 at 09:00; Status Future Hold Nifedipine 60 mg 60 mg BID PO Last administered on 06/12/16 08:15; Admin Dose 60 MG; Start 06/08/16 at 21:00 Ertapenem/Sodium Chloride (Invanz/NS) 100 ml @ 200 mls/hr Q24H IVPB Last administered on 06/11/16 12:27; Admin Dose 200 MLS/HR; Start 06/10/16 at 12:00 PAYTON THORNE MD Jun 12, 2016 12:14
[2016-06-12] MEDS: ERTAPENEM SODIUM 1 GM in SOD CHLORIDE 0.9% 100 ML IVPB SCH (12:29)
--- NOTE | 2016-06-12 13:12 | CONS ---
Date/Time of Note Date/Time of Note DATE: 06/12/16 TIME: 13:11 Consult Date/Type/Reason Admit Date/Time Jun 05, 2016 at 20:45 Subjective Comfortable Objective pulm-cta abd-soft mod assist ambulation Vital Signs Date Time Temp Pulse Resp B/P Pulse Ox O2 Delivery O2 Flow Rate FiO2 06/12/16 07:30 98.2 71 18 152/90 96 06/11/16 08:00 Room Air Intake and Output 06/11/16 06/11/16 06/12/16 14:59 22:59 06:59 Intake Total 700 ml Balance 700 ml Results/Medications Result Diagram: 06/10/16 0540 06/11/16 0629 Results 24 hrs Laboratory Tests Test 06/11/16 17:08 06/11/16 20:46 06/12/16 02:35 06/12/16 07:29 Bedside Glucose 148 200 122 127 Test 06/12/16 12:11 Bedside Glucose 211 Medications Current Medications Acetaminophen (Tylenol Tab) 650 mg Q4H PRN PO PAIN AND OR ELEVATED TEMP Last administered on 06/08/16 17:21; Admin Dose 650 MG; Start 06/05/16 at 22:30 Atorvastatin Calcium (Lipitor) 80 mg HS PO Last administered on 06/11/16 20:48 ; Admin Dose 80 MG; Start 06/06/16 at 21:00 Docusate Sodium (Colace) 100 mg BID PO Last administered on 06/12/16 08:14; Admin Dose 100 MG; Start 06/06/16 at 09:00 Senna (Senokot) 1 tab HS PO Last administered on 06/11/16 20:48; Admin Dose 1 TAB; Start 06/06/16 at 21:00 Magnesium Hydroxide (Milk Of Mag) 30 ml BID PRN PO CONSTIPATION Last administered on 06/07/16 08:27; Admin Dose 30 ML; Start 06/05/16 at 22:30 Lactulose (Enulose) 20 gm DAILY PRN PO CONSTIPATION; Start 06/05/16 at 22:30 Bisacodyl (Dulcolax Supp) 10 mg DAILY PRN [place] CONSTIPATION; Start 06/05/16 at 22 :30 Miscellaneous Information 1 ea NOTE XX ; Start 06/05/16 at 23:00 Glucose (Glutose) 15 gm Q15M PRN PO DECREASED GLUCOSE; Start 06/05/16 at 23:00 Glucose (Glutose) 22.5 gm Q15M PRN PO DECREASED GLUCOSE; Start 06/05/16 at 23: 00 Dextrose (D50w Syringe) 25 ml Q15M PRN IV DECREASED GLUCOSE; Start 06/05/16 at 23:00 Dextrose (D50w Syringe) 50 ml Q15M PRN IV DECREASED GLUCOSE; Start 06/05/16 at 23:00 Glucagon (Glucagen) 1 mg Q15M PRN IM DECREASED GLUCOSE; Start 06/05/16 at 23:00 Glucose (Glutose) 15 gm Q15M PRN BUCCAL DECREASED GLUCOSE; Start 06/05/16 at 23 :00 Diagnostic Test (Pha) (Accucheck) 1 ea 02 XX Last administered on 06/12/16 02: 40; Admin Dose 1 EA; Start 06/06/16 at 02:00 Metoprolol Tartrate (Lopressor) 50 mg BID PO Last administered on 06/12/16 08: 15; Admin Dose 50 MG; Start 06/06/16 at 21:00 Ondansetron HCl (Zofran Inj) 4 mg Q6H PRN IV NAUSEA AND/OR VOMITING; Start at 15:00 Insulin Glargine (Lantus) 18 unit DAILY@08 SC Last administered on 06/12/16 08: 18; Admin Dose 18 UNIT; Start 06/09/16 at 08:00 Lisinopril (Zestril) 20 mg DAILY PO ; Start 06/09/16 at 09:00; Status Future Hold Nifedipine 60 mg 60 mg BID PO Last administered on 06/12/16 08:15; Admin Dose 60 MG; Start 06/08/16 at 21:00 Ertapenem/Sodium Chloride (Invanz/NS) 100 ml @ 200 mls/hr Q24H IVPB Last administered on 06/12/16 12:29; Admin Dose 200 MLS/HR; Start 06/10/16 at 12:00 Assessment/Plan Additional Assessment/Plan Rehab- midbrain hem CVA Continue rehab treatment plan DM- monitor BS HTN Dysphagia ALEXANDRO MELTON MD Jun 12, 2016 13:12
[2016-06-12 20:00] VITALS: BP 163/88; RESP 18
[2016-06-12] MEDS: ATORVASTATIN 80 MG TAB PO SCH (21:18)
[2016-06-12] MEDS: SENNA TAB PO SCH (21:18)
[2016-06-13] MEDS: ACCUCHECK AT 2AM (Patients on SS coverage) XX SCH (02:00)
[2016-06-13] MEDS: Insulin NOVOLOG SS MILD Algorithm (SS with meals and bedtime) SC SCH ×4 (07:05→21:13)
[2016-06-13 07:37] LABS: POTASSIUM 4.1 mmol/L (3.5-5.1)
[2016-06-13 07:39] LABS: CREATININE 0.79 mg/dl (0.44-1.00)
[2016-06-13 07:40] LABS: CALCIUM 9.4 mg/dl (8.4-10.2)
[2016-06-13] MEDS: INSULIN GLARGINE [LANtus] 3 ML PEN SC SCH (08:53)
[2016-06-13] MEDS: DOCUSATE SODIUM 100 MG CAP PO SCH ×2 (08:56→21:02)
[2016-06-13] MEDS: METOPROLOL 50 MG TAB PO SCH ×2 (08:56→21:04)
[2016-06-13] MEDS: NIFEdipine (XL) 60 MG TAB PO SCH ×2 (08:57→21:03)
--- NOTE | 2016-06-13 09:34 | PN ---
DATE: 06/13/2016 SUBJECTIVE: The patient is stable. No acute events overnight. No fevers, chills, nausea, or vomit ing. No shortness of breath. OBJECTIVE: VITAL SIGNS: Blood pressure is 163/88, respirations 18, pulse 77, temperature 97.0. HEENT: Head is normocephalic. NECK: Supple. HEART: Regular rate. LUNGS: Showed diminished breath sounds at the base. ABDOMEN: Soft, nontender to palpation. No rebound or guarding. EXTREMITIES: Negative for clubbing or cyanosis. No edema. DERMATOLOGIC: No rashes. MUSCULOSKELETAL: Have no joint effusion. NEUROLOGIC: No change in exam. MEDICATIONS: The patient's medications have been reviewed. LABORATORY DATA: Shows sodium 145, potassium 4.0, chloride 103, BUN 22, creatinine 0.79. ASSESSMENT AND PLAN: 1. Nonoliguric acute kidney injury, with a previous baseline creatinine of 0.8 mg/dL. Etiology of acute kidney injury is secondary to hemodynamics and FLACO inhibitor effect. Renal function status solis s improved back to baseline. Will continue to monitor closely. May reintroduce low dose FLACO inhibi tor and monitor renal function. Otherwise continue supportive care, renally dose all medications an d avoid nephrotoxins. 2. Mineral bone disorder. Continue to monitor calcium and phosphorus levels. 3. Hypertension. Blood pressure remains elevated. Continue the current blood pressure regimen. Wi ll start the patient on a low-dose FLACO inhibitor. 4. Acute cerebrovascular accident with right-sided hemiparesis. Continue physical therapy and occu pational therapy. 5. Diabetes. Continue the current insulin regimen. 6. Urinary tract infection. The patient is on antibiotic therapy. Continue to monitor. 7. Dyslipidemia. Continue statin therapy. Dictated By: TEO NGUYEN/APRYL Conf#: [id number] DID#: [id number]
[2016-06-13] MEDS: LISINOPRIL 5 MG TAB PO SCH (09:55)
[2016-06-13] MEDS: ERTAPENEM SODIUM 1 GM in SOD CHLORIDE 0.9% 100 ML IVPB SCH (12:26)
--- NOTE | 2016-06-13 12:27 | CONS ---
Date/Time of Note Date/Time of Note DATE: 06/13/16 TIME: 12:26 Consult Date/Type/Reason Admit Date/Time Jun 05, 2016 at 20:45 Subjective Feeling better Objective pulm-cta abd-soft mod ambulation Vital Signs Date Time Temp Pulse Resp B/P Pulse Ox O2 Delivery O2 Flow Rate FiO2 06/12/16 20:00 97.0 77 18 163/88 95 06/11/16 08:00 Room Air Intake and Output 06/12/16 06/12/16 06/13/16 15:00 23:00 07:00 Intake Total 620 ml 480 ml Balance 620 ml 480 ml Results/Medications Result Diagram: 06/10/16 0540 06/13/16 0633 Results 24 hrs Laboratory Tests Test 06/12/16 17:20 06/12/16 21:16 06/13/16 06:33 06/13/16 07:31 Bedside Glucose 172 143 133 Anion Gap 19 H Blood Urea Nitrogen 22 H Calcium Level 9.4 Carbon Dioxide Level 27 Chloride Level 103 Creatinine 0.79 Glucose Level 123 Potassium Level 4.1 Sodium Level 145 H Test 06/13/16 11:49 Bedside Glucose 160 Medications Current Medications Acetaminophen (Tylenol Tab) 650 mg Q4H PRN PO PAIN AND OR ELEVATED TEMP Last administered on 06/08/16 17:21; Admin Dose 650 MG; Start 06/05/16 at 22:30 Atorvastatin Calcium (Lipitor) 80 mg HS PO Last administered on 06/12/16 21:18 ; Admin Dose 80 MG; Start 06/06/16 at 21:00 Docusate Sodium (Colace) 100 mg BID PO Last administered on 06/12/16 21:18; Admin Dose 100 MG; Start 06/06/16 at 09:00 Senna (Senokot) 1 tab HS PO Last administered on 06/12/16 21:18; Admin Dose 1 TAB; Start 06/06/16 at 21:00 Magnesium Hydroxide (Milk Of Mag) 30 ml BID PRN PO CONSTIPATION Last administered on 06/07/16 08:27; Admin Dose 30 ML; Start 06/05/16 at 22:30 Lactulose (Enulose) 20 gm DAILY PRN PO CONSTIPATION Last administered on 16:06; Admin Dose 20 GM; Start 06/05/16 at 22:30 Bisacodyl (Dulcolax Supp) 10 mg DAILY PRN [place] CONSTIPATION; Start 06/05/16 at 22 :30 Miscellaneous Information 1 ea NOTE XX ; Start 06/05/16 at 23:00 Glucose (Glutose) 15 gm Q15M PRN PO DECREASED GLUCOSE; Start 06/05/16 at 23:00 Glucose (Glutose) 22.5 gm Q15M PRN PO DECREASED GLUCOSE; Start 06/05/16 at 23: 00 Dextrose (D50w Syringe) 25 ml Q15M PRN IV DECREASED GLUCOSE; Start 06/05/16 at 23:00 Dextrose (D50w Syringe) 50 ml Q15M PRN IV DECREASED GLUCOSE; Start 06/05/16 at 23:00 Glucagon (Glucagen) 1 mg Q15M PRN IM DECREASED GLUCOSE; Start 06/05/16 at 23:00 Glucose (Glutose) 15 gm Q15M PRN BUCCAL DECREASED GLUCOSE; Start 06/05/16 at 23 :00 Diagnostic Test (Pha) (Accucheck) 1 ea 02 XX Last administered on 06/12/16 02: 40; Admin Dose 1 EA; Start 06/06/16 at 02:00 Metoprolol Tartrate (Lopressor) 50 mg BID PO Last administered on 06/13/16 08: 56; Admin Dose 50 MG; Start 06/06/16 at 21:00 Ondansetron HCl (Zofran Inj) 4 mg Q6H PRN IV NAUSEA AND/OR VOMITING; Start at 15:00 Insulin Glargine (Lantus) 18 unit DAILY@08 SC Last administered on 06/13/16 08: 53; Admin Dose 18 UNIT; Start 06/09/16 at 08:00 Lisinopril (Zestril) 20 mg DAILY PO ; Start 06/09/16 at 09:00; Status Future Hold Nifedipine 60 mg 60 mg BID PO Last administered on 06/13/16 08:57; Admin Dose 60 MG; Start 06/08/16 at 21:00 Ertapenem/Sodium Chloride (Invanz/NS) 100 ml @ 200 mls/hr Q24H IVPB Last administered on 06/12/16 12:29; Admin Dose 200 MLS/HR; Start 06/10/16 at 12:00 Lisinopril (Zestril) 5 mg DAILY PO Last administered on 06/13/16t 09:55; Admin Dose 5 MG; Start 06/13/16 at 09:00 Assessment/Plan Additional Assessment/Plan Rehab- midbrain hem CVA Progressing with rehab treatment plan DM- monitor BS HTN Dysphagia ALEXANDRO MELTON MD Jun 13, 2016 12:27
[2016-06-13 16:23] VITALS: BP 155/96; RESP 15
--- NOTE | 2016-06-13 16:51 | PN ---
Date/Time of Note Date/Time of Note DATE: 06/13/16 TIME: 16:49 Assessment/Plan VTE Prophylaxis VTE Prophylaxis Intervention: SCD's Lines/Catheters [facility] Peripheral IV Urinary Cath still in place: No Assessment/Plan Chief Complaint/Hosp Course ASSESSMENT AND PLAN: 1. Subacute mid brain bleed. The patient will be continued on physical therapy , occupational therapy and speech therapy during this course of acute rehabilitation 2. Essential hypertension. Well-controlled on nifedipine, benazepril and Lopressor 3. Diabetes mellitus. continue Lantus, low-carb diet 4. Dyslipidemia. 5. History of noncompliance with medical management. 6. Acute renal insufficiency. Avoid nephrotoxins and meds, nephrology has been consulted, patient has been started on IV fluid, benazepril has been decreased from 40 mg to 20 mg daily 7. Transaminitis. Continue to monitor PLAN: For deep venous thrombosis prophylaxis, on SCDs. Refrain from using any pharmacologic DVT prophylaxis secondary to intracranial hemorrhage. We will continue monitor patient closely for recommendation management treatment as clinical course Problems: Subjective 24 Hr Interval Summary Free Text/Dictation Minimal improvement in ambulation and balance No nausea vomiting diarrhea Tolerating oral intake Moderate assist with ambulation Exam/Review of Systems Vital Signs Vitals Vital Signs Date Time Temp Pulse Resp B/P Pulse Ox O2 Delivery O2 Flow Rate FiO2 06/13/16 16:23 98.0 71 15 155/96 96 06/11/16 08:00 Room Air Intake and Output 06/12/16 06/12/16 06/13/16 15:00 23:00 07:00 Intake Total 620 ml 480 ml Balance 620 ml 480 ml Exam General: The patient is well-developed, Not in acute distress. HEENT: Atraumatic, normocephalic. The pupils are equal and round . Neck: Supple with full range of motion. Chest: Normal expansion of the thorax during inspiration Lungs: Clear to auscultation bilaterally Heart: Normal S1-S2, Regular rhythm and rate. Abdomen: Soft , nontender, nondistended , bowel sounds are present. Extremities: Left upper extremity weakness, no edema no cyanosis Neurologic: The patient is awake, alert Results Result Diagram: 06/10/16 0540 06/13/16 0633 Results 24 hrs Laboratory Tests Test 06/12/16 17:20 06/12/16 21:16 06/13/16 06:33 06/13/16 07:31 Bedside Glucose 172 143 133 Anion Gap 19 H Blood Urea Nitrogen 22 H Calcium Level 9.4 Carbon Dioxide Level 27 Chloride Level 103 Creatinine 0.79 Glucose Level 123 Potassium Level 4.1 Sodium Level 145 H Test 06/13/16 11:49 Bedside Glucose 160 Medications Medications Current Medications Acetaminophen (Tylenol Tab) 650 mg Q4H PRN PO PAIN AND OR ELEVATED TEMP Last administered on 06/08/16 17:21; Admin Dose 650 MG; Start 06/05/16 at 22:30 Atorvastatin Calcium (Lipitor) 80 mg HS PO Last administered on 06/12/16 21:18 ; Admin Dose 80 MG; Start 06/06/16 at 21:00 Docusate Sodium (Colace) 100 mg BID PO Last administered on 06/12/16 21:18; Admin Dose 100 MG; Start 06/06/16 at 09:00 Senna (Senokot) 1 tab HS PO Last administered on 06/12/16 21:18; Admin Dose 1 TAB; Start 06/06/16 at 21:00 Magnesium Hydroxide (Milk Of Mag) 30 ml BID PRN PO CONSTIPATION Last administered on 06/07/16 08:27; Admin Dose 30 ML; Start 06/05/16 at 22:30 Lactulose (Enulose) 20 gm DAILY PRN PO CONSTIPATION Last administered on 16:06; Admin Dose 20 GM; Start 06/05/16 at 22:30 Bisacodyl (Dulcolax Supp) 10 mg DAILY PRN [place] CONSTIPATION; Start 06/05/16 at 22 :30 Miscellaneous Information 1 ea NOTE XX ; Start 06/05/16 at 23:00 Glucose (Glutose) 15 gm Q15M PRN PO DECREASED GLUCOSE; Start 06/05/16 at 23:00 Glucose (Glutose) 22.5 gm Q15M PRN PO DECREASED GLUCOSE; Start 06/05/16 at 23: 00 Dextrose (D50w Syringe) 25 ml Q15M PRN IV DECREASED GLUCOSE; Start 06/05/16 at 23:00 Dextrose (D50w Syringe) 50 ml Q15M PRN IV DECREASED GLUCOSE; Start 06/05/16 at 23:00 Glucagon (Glucagen) 1 mg Q15M PRN IM DECREASED GLUCOSE; Start 06/05/16 at 23:00 Glucose (Glutose) 15 gm Q15M PRN BUCCAL DECREASED GLUCOSE; Start 06/05/16 at 23 :00 Diagnostic Test (Pha) (Accucheck) 1 ea 02 XX Last administered on 06/12/16 02: 40; Admin Dose 1 EA; Start 06/06/16 at 02:00 Metoprolol Tartrate (Lopressor) 50 mg BID PO Last administered on 06/13/16 08: 56; Admin Dose 50 MG; Start 06/06/16 at 21:00 Ondansetron HCl (Zofran Inj) 4 mg Q6H PRN IV NAUSEA AND/OR VOMITING; Start at 15:00 Insulin Glargine (Lantus) 18 unit DAILY@08 SC Last administered on 06/13/16 08: 53; Admin Dose 18 UNIT; Start 06/09/16 at 08:00 Lisinopril (Zestril) 20 mg DAILY PO ; Start 06/09/16 at 09:00; Status Future Hold Nifedipine 60 mg 60 mg BID PO Last administered on 06/13/16 08:57; Admin Dose 60 MG; Start 06/08/16 at 21:00 Ertapenem/Sodium Chloride (Invanz/NS) 100 ml @ 200 mls/hr Q24H IVPB Last administered on 06/13/16 12:26; Admin Dose 200 MLS/HR; Start 06/10/16 at 12:00 Lisinopril (Zestril) 5 mg DAILY PO Last administered on 06/13/16 09:55; Admin Dose 5 MG; Start 06/13/16 at 09:00 SCAR BOYER MD Jun 13, 2016 16:51
[2016-06-13 20:06] VITALS: BP 140/61; RESP 19
[2016-06-13] MEDS: SENNA TAB PO SCH (21:02)
[2016-06-13] MEDS: ATORVASTATIN 80 MG TAB PO SCH (21:02)
[2016-06-14] MEDS: ACCUCHECK AT 2AM (Patients on SS coverage) XX SCH (02:00)
[2016-06-14] MEDS: Insulin NOVOLOG SS MILD Algorithm (SS with meals and bedtime) SC SCH ×4 (07:05→21:11)
[2016-06-14 07:15] LABS: CREATININE 0.75 mg/dl (0.44-1.00)
[2016-06-14 07:16] LABS: CALCIUM 9.4 mg/dl (8.4-10.2)
[2016-06-14 07:40] VITALS: BP 161/88; PULSE 66; RESP 18
[2016-06-14] MEDS: LISINOPRIL 5 MG TAB PO SCH (09:12)
[2016-06-14] MEDS: NIFEdipine (XL) 60 MG TAB PO SCH ×2 (09:12→21:09)
[2016-06-14] MEDS: DOCUSATE SODIUM 100 MG CAP PO SCH ×2 (09:13→21:08)
[2016-06-14] MEDS: METOPROLOL 50 MG TAB PO SCH ×2 (09:13→21:09)
[2016-06-14] MEDS: INSULIN GLARGINE [LANtus] 3 ML PEN SC SCH (09:16)
--- NOTE | 2016-06-14 09:28 | PN ---
DATE: 06/14/2016 SUBJECTIVE: The patient is stable, no acute events overnight. No fevers, chills, nausea, vomiting, no shortness of breath. OBJECTIVE: VITAL SIGNS: Blood pressure is 161/88, respirations 18, pulse 66, temperature 97.8. HEENT: Head is normocephalic. NECK: Supple. HEART: Regular rate. LUNGS: Show diminished breath sounds at the base. ABDOMEN: Soft, nontender to palpation, no rebound or guarding. EXTREMITIES: Negative for clubbing, cyanosis, no edema. DERMATOLOGIC: No rashes. MUSCULOSKELETAL: No joint effusions. NEUROLOGIC: No change in exam. MEDICATIONS: The patient's medications have been reviewed. LABORATORY DATA: Showed sodium 144, potassium 4.0, BUN 19, creatinine 0.75. ASSESSMENT AND PLAN: 1. Nonoliguric acute kidney injury with previous baseline creatinine of 0.8 mg/dL. Etiology of acu te kidney injury is secondary to FLACO inhibitor, hemodynamics. Renal function has returned to baseli ne. The patient has been reintroduced on FLACO inhibitor, low dose 5 mg daily. Will up titrate slowl y monitor renal function. Otherwise continue current treatment plan. 2. Mineral bone disorder. Continue to monitor calcium, phosphorus levels. No need for phosphate b inders. 3. Hypertension. Blood pressure is elevated, but slowly improving. Continue current blood pressur e regimen, slowly up titrate FLACO inhibitor. 4. Acute cerebrovascular accident with right-sided hemiparesis. Continue physical therapy and occu pational therapy. 5. Diabetes. Continue current insulin regimen. 6. Urinary tract infection. The patient is completing antibiotic course. 7. Dyslipidemia. Continue statin therapy. Dictated By: TEO NGUYEN/APRYL Conf#: [id number] DID#: [id number]
[2016-06-14 09:52] VITALS: BP 161/88; RESP 20
--- NOTE | 2016-06-14 11:22 | CONS ---
Date/Time of Note Date/Time of Note DATE: 06/14/16 TIME: 11:21 Consult Date/Type/Reason Admit Date/Time Jun 05, 2016 at 20:45 Subjective Dysarthria improving Objective pulm-cta abd-soft Vital Signs Date Time Temp Pulse Resp B/P Pulse Ox O2 Delivery O2 Flow Rate FiO2 06/14/16 09:52 97.8 66 20 161/88 93 06/14/16 07:40 Room Air Intake and Output 06/13/16 06/13/16 06/14/16 15:00 23:00 07:00 Intake Total 100 ml 800 ml 320 ml Output Total 250 ml Balance 100 ml 800 ml 70 ml Results/Medications Result Diagram: 06/10/16 0540 06/14/16 0610 Results 24 hrs Laboratory Tests Test 06/13/16 11:49 06/13/16 17:12 06/13/16 20:34 06/14/16 02:31 Bedside Glucose 160 138 183 101 Test 06/14/16 06:10 06/14/16 07:37 Anion Gap 19 H Blood Urea Nitrogen 19 Calcium Level 9.4 Carbon Dioxide Level 26 Chloride Level 103 Creatinine 0.75 Glucose Level 105 Magnesium Level 2.0 Phosphorus Level 4.0 Potassium Level 4.0 Sodium Level 144 Bedside Glucose 121 Medications Current Medications Acetaminophen (Tylenol Tab) 650 mg Q4H PRN PO PAIN AND OR ELEVATED TEMP Last administered on 06/08/16 17:21; Admin Dose 650 MG; Start 06/05/16 at 22:30 Atorvastatin Calcium (Lipitor) 80 mg HS PO Last administered on 06/13/16 21:02 ; Admin Dose 80 MG; Start 06/06/16 at 21:00 Docusate Sodium (Colace) 100 mg BID PO Last administered on 06/14/16 09:13; Admin Dose 100 MG; Start 06/06/16 at 09:00 Senna (Senokot) 1 tab HS PO Last administered on 06/13/16 21:02; Admin Dose 1 TAB; Start 06/06/16 at 21:00 Magnesium Hydroxide (Milk Of Mag) 30 ml BID PRN PO CONSTIPATION Last administered on 06/07/16 08:27; Admin Dose 30 ML; Start 06/05/16 at 22:30 Lactulose (Enulose) 20 gm DAILY PRN PO CONSTIPATION Last administered on 16:06; Admin Dose 20 GM; Start 06/05/16 at 22:30 Bisacodyl (Dulcolax Supp) 10 mg DAILY PRN [place] CONSTIPATION; Start 06/05/16 at 22 :30 Miscellaneous Information 1 ea NOTE XX ; Start 06/05/16 at 23:00 Glucose (Glutose) 15 gm Q15M PRN PO DECREASED GLUCOSE; Start 06/05/16 at 23:00 Glucose (Glutose) 22.5 gm Q15M PRN PO DECREASED GLUCOSE; Start 06/05/16 at 23: 00 Dextrose (D50w Syringe) 25 ml Q15M PRN IV DECREASED GLUCOSE; Start 06/05/16 at 23:00 Dextrose (D50w Syringe) 50 ml Q15M PRN IV DECREASED GLUCOSE; Start 06/05/16 at 23:00 Glucagon (Glucagen) 1 mg Q15M PRN IM DECREASED GLUCOSE; Start 06/05/16 at 23:00 Glucose (Glutose) 15 gm Q15M PRN BUCCAL DECREASED GLUCOSE; Start 06/05/16 at 23 :00 Diagnostic Test (Pha) (Accucheck) 1 ea 02 XX Last administered on 06/14/16 02: 00; Admin Dose 1 EA; Start 06/06/16 at 02:00 Metoprolol Tartrate (Lopressor) 50 mg BID PO Last administered on 06/14/16 09: 13; Admin Dose 50 MG; Start 06/06/16 at 21:00 Ondansetron HCl (Zofran Inj) 4 mg Q6H PRN IV NAUSEA AND/OR VOMITING; Start at 15:00 Insulin Glargine (Lantus) 18 unit DAILY@08 SC Last administered on 06/14/16 09: 16; Admin Dose 18 UNIT; Start 06/09/16 at 08:00 Nifedipine 60 mg 60 mg BID PO Last administered on 06/14/16 09:12; Admin Dose 60 MG; Start 06/08/16 at 21:00 Ertapenem/Sodium Chloride (Invanz/NS) 100 ml @ 200 mls/hr Q24H IVPB Last administered on 06/13/16 12:26; Admin Dose 200 MLS/HR; Start 06/10/16 at 12:00 Lisinopril (Zestril) 5 mg DAILY PO Last administered on 06/14/16t 09:12; Admin Dose 5 MG; Start 06/13/16 at 09:00 Assessment/Plan Additional Assessment/Plan Rehab- midbrain hem CVA Continue rehab treatment plan DM- monitor BS HTN Dysphagia-improving ALEXANDRO MELTON MD Jun 14, 2016 11:22
[2016-06-14] MEDS: ERTAPENEM SODIUM 1 GM in SOD CHLORIDE 0.9% 100 ML IVPB SCH (12:00)
--- NOTE | 2016-06-14 12:14 | PN ---
Date/Time of Note Date/Time of Note DATE: 06/14/16 TIME: 12:13 Assessment/Plan VTE Prophylaxis VTE Prophylaxis Intervention: SCD's Lines/Catheters [facility] Peripheral IV Urinary Cath still in place: No Assessment/Plan Assessment/Plan 1. Subacute mid brain bleed. The patient will be continued on physical therapy , occupational therapy and speech therapy during this course of acute rehabilitation 2. Essential hypertension. Well-controlled on nifedipine, benazepril and Lopressor 3. Diabetes mellitus. continue Lantus, low-carb diet 4. Dyslipidemia. 5. History of noncompliance with medical management. 6. Acute renal insufficiency. Avoid nephrotoxins and meds, nephrology has been consulted, patient has been started on IV fluid, benazepril has been decreased from 40 mg to 20 mg daily 7. Transaminitis. Continue to monitor PLAN: For deep venous thrombosis prophylaxis, on SCDs. Refrain from using any pharmacologic DVT prophylaxis secondary to intracranial hemorrhage. We will continue monitor patient closely for recommendation management treatment as clinical course Subjective 24 Hr Interval Summary Free Text/Dictation blood sugar controlled, participating in rehab, still not a good progress Exam/Review of Systems Vital Signs Vitals Vital Signs Date Time Temp Pulse Resp B/P Pulse Ox O2 Delivery O2 Flow Rate FiO2 06/14/16 09:52 97.8 66 20 161/88 93 06/14/16 07:40 Room Air Intake and Output 06/13/16 06/13/16 06/14/16 15:00 23:00 07:00 Intake Total 100 ml 800 ml 320 ml Output Total 250 ml Balance 100 ml 800 ml 70 ml Exam HEENT: Head is normocephalic. NECK: Supple. HEART: Regular rate. LUNGS: Show diminished breath sounds at the base. ABDOMEN: Soft, nontender to palpation without rebound or guarding. EXTREMITIES: Negative for clubbing, cyanosis. No edema. DERMATOLOGIC: No rashes. MUSCULOSKELETAL: No joint effusions. NEUROLOGIC: No change in exam. Results Result Diagram: 06/10/16 0540 06/14/16 0610 Results 24 hrs Laboratory Tests Test 06/13/16 17:12 06/13/16 20:34 06/14/16 02:31 06/14/16 06:10 Bedside Glucose 138 183 101 Anion Gap 19 H Blood Urea Nitrogen 19 Calcium Level 9.4 Carbon Dioxide Level 26 Chloride Level 103 Creatinine 0.75 Glucose Level 105 Magnesium Level 2.0 Phosphorus Level 4.0 Potassium Level 4.0 Sodium Level 144 Test 06/14/16 07:37 06/14/16 11:54 Bedside Glucose 121 126 Medications Medications Current Medications Acetaminophen (Tylenol Tab) 650 mg Q4H PRN PO PAIN AND OR ELEVATED TEMP Last administered on 06/08/16 17:21; Admin Dose 650 MG; Start 06/05/16 at 22:30 Atorvastatin Calcium (Lipitor) 80 mg HS PO Last administered on 06/13/16 21:02 ; Admin Dose 80 MG; Start 06/06/16 at 21:00 Docusate Sodium (Colace) 100 mg BID PO Last administered on 06/14/16 09:13; Admin Dose 100 MG; Start 06/06/16 at 09:00 Senna (Senokot) 1 tab HS PO Last administered on 06/13/16 21:02; Admin Dose 1 TAB; Start 06/06/16 at 21:00 Magnesium Hydroxide (Milk Of Mag) 30 ml BID PRN PO CONSTIPATION Last administered on 06/07/16 08:27; Admin Dose 30 ML; Start 06/05/16 at 22:30 Lactulose (Enulose) 20 gm DAILY PRN PO CONSTIPATION Last administered on 16:06; Admin Dose 20 GM; Start 06/05/16 at 22:30 Bisacodyl (Dulcolax Supp) 10 mg DAILY PRN [place] CONSTIPATION; Start 06/05/16 at 22 :30 Miscellaneous Information 1 ea NOTE XX ; Start 06/05/16 at 23:00 Glucose (Glutose) 15 gm Q15M PRN PO DECREASED GLUCOSE; Start 06/05/16 at 23:00 Glucose (Glutose) 22.5 gm Q15M PRN PO DECREASED GLUCOSE; Start 06/05/16 at 23: 00 Dextrose (D50w Syringe) 25 ml Q15M PRN IV DECREASED GLUCOSE; Start 06/05/16 at 23:00 Dextrose (D50w Syringe) 50 ml Q15M PRN IV DECREASED GLUCOSE; Start 06/05/16 at 23:00 Glucagon (Glucagen) 1 mg Q15M PRN IM DECREASED GLUCOSE; Start 06/05/16 at 23:00 Glucose (Glutose) 15 gm Q15M PRN BUCCAL DECREASED GLUCOSE; Start 06/05/16 at 23 :00 Diagnostic Test (Pha) (Accucheck) 1 ea 02 XX Last administered on 06/14/16 02: 00; Admin Dose 1 EA; Start 06/06/16 at 02:00 Metoprolol Tartrate (Lopressor) 50 mg BID PO Last administered on 06/14/16 09: 13; Admin Dose 50 MG; Start 06/06/16 at 21:00 Ondansetron HCl (Zofran Inj) 4 mg Q6H PRN IV NAUSEA AND/OR VOMITING; Start at 15:00 Insulin Glargine (Lantus) 18 unit DAILY@08 SC Last administered on 06/14/16 09: 16; Admin Dose 18 UNIT; Start 06/09/16 at 08:00 Nifedipine 60 mg 60 mg BID PO Last administered on 06/14/16 09:12; Admin Dose 60 MG; Start 06/08/16 at 21:00 Ertapenem/Sodium Chloride (Invanz/NS) 100 ml @ 200 mls/hr Q24H IVPB Last administered on 06/13/16 12:26; Admin Dose 200 MLS/HR; Start 06/10/16 at 12:00 Lisinopril (Zestril) 5 mg DAILY PO Last administered on 06/14/16 09:12; Admin Dose 5 MG; Start 06/13/16 at 09:00 PAYTON THORNE MD Jun 14, 2016 12:14
[2016-06-14 20:00] VITALS: BP 134/77; RESP 18
[2016-06-14] MEDS: SENNA TAB PO SCH (21:09)
[2016-06-14] MEDS: ATORVASTATIN 80 MG TAB PO SCH (21:09)
[2016-06-15] MEDS: ACCUCHECK AT 2AM (Patients on SS coverage) XX SCH (02:06)
[2016-06-15] MEDS: Insulin NOVOLOG SS MILD Algorithm (SS with meals and bedtime) SC SCH ×4 (07:05→20:47)
[2016-06-15 07:30] VITALS: BP 166/92; RESP 18
[2016-06-15] MEDS: DOCUSATE SODIUM 100 MG CAP PO SCH ×2 (08:31→20:47)
[2016-06-15] MEDS: NIFEdipine (XL) 60 MG TAB PO SCH ×2 (08:32→20:47)
[2016-06-15] MEDS: METOPROLOL 50 MG TAB PO SCH ×2 (08:33→20:46)
[2016-06-15] MEDS: INSULIN GLARGINE [LANtus] 3 ML PEN SC SCH (08:37)
[2016-06-15] MEDS: LISINOPRIL 5 MG TAB PO SCH (08:39)
--- NOTE | 2016-06-15 09:46 | CONS ---
Date/Time of Note Date/Time of Note DATE: 06/15/16 TIME: 09:46 Consult Date/Type/Reason Admit Date/Time Jun 05, 2016 at 20:45 Subjective In good spirits Objective Vital Signs Date Time Temp Pulse Resp B/P Pulse Ox O2 Delivery O2 Flow Rate FiO2 06/15/16 07:30 98.3 64 18 166/92 97 06/14/16 07:40 Room Air Intake and Output 06/14/16 06/14/16 06/15/16 14:59 22:59 06:59 Intake Total 1800 ml 450 ml Output Total 150 ml Balance -150 ml 1800 ml 450 ml pulm-cta abd-soft mod wc mobility Results/Medications Result Diagram: 06/14/16 0610 Results 24 hrs Laboratory Tests Test 06/14/16 11:54 06/14/16 17:08 06/14/16 21:06 06/15/16 07:27 Bedside Glucose 126 113 190 106 Test 06/15/16 07:57 Bedside Glucose 106 Medications Current Medications Acetaminophen (Tylenol Tab) 650 mg Q4H PRN PO PAIN AND OR ELEVATED TEMP Last administered on 06/08/16 17:21; Admin Dose 650 MG; Start 06/05/16 at 22:30 Atorvastatin Calcium (Lipitor) 80 mg HS PO Last administered on 06/14/16 21:09 ; Admin Dose 80 MG; Start 06/06/16 at 21:00 Docusate Sodium (Colace) 100 mg BID PO Last administered on 06/15/16 08:31; Admin Dose 100 MG; Start 06/06/16 at 09:00 Senna (Senokot) 1 tab HS PO Last administered on 06/14/16 21:09; Admin Dose 1 TAB; Start 06/06/16 at 21:00 Magnesium Hydroxide (Milk Of Mag) 30 ml BID PRN PO CONSTIPATION Last administered on 06/07/16 08:27; Admin Dose 30 ML; Start 06/05/16 at 22:30 Lactulose (Enulose) 20 gm DAILY PRN PO CONSTIPATION Last administered on 16:06; Admin Dose 20 GM; Start 06/05/16 at 22:30 Bisacodyl (Dulcolax Supp) 10 mg DAILY PRN [place] CONSTIPATION; Start 06/05/16 at 22 :30 Miscellaneous Information 1 ea NOTE XX ; Start 06/05/16 at 23:00 Glucose (Glutose) 15 gm Q15M PRN PO DECREASED GLUCOSE; Start 06/05/16 at 23:00 Glucose (Glutose) 22.5 gm Q15M PRN PO DECREASED GLUCOSE; Start 06/05/16 at 23: 00 Dextrose (D50w Syringe) 25 ml Q15M PRN IV DECREASED GLUCOSE; Start 06/05/16 at 23:00 Dextrose (D50w Syringe) 50 ml Q15M PRN IV DECREASED GLUCOSE; Start 06/05/16 at 23:00 Glucagon (Glucagen) 1 mg Q15M PRN IM DECREASED GLUCOSE; Start 06/05/16 at 23:00 Glucose (Glutose) 15 gm Q15M PRN BUCCAL DECREASED GLUCOSE; Start 06/05/16 at 23 :00 Diagnostic Test (Pha) (Accucheck) 1 ea 02 XX Last administered on 06/15/16 02: 06; Admin Dose 1 EA; Start 06/06/16 at 02:00 Metoprolol Tartrate (Lopressor) 50 mg BID PO Last administered on 06/15/16 08: 33; Admin Dose 50 MG; Start 06/06/16 at 21:00 Ondansetron HCl (Zofran Inj) 4 mg Q6H PRN IV NAUSEA AND/OR VOMITING; Start at 15:00 Insulin Glargine (Lantus) 18 unit DAILY@08 SC Last administered on 06/15/16 08: 37; Admin Dose 18 UNIT; Start 06/09/16 at 08:00 Nifedipine 60 mg 60 mg BID PO Last administered on 06/15/16 08:32; Admin Dose 60 MG; Start 06/08/16 at 21:00 Ertapenem/Sodium Chloride (Invanz/NS) 100 ml @ 200 mls/hr Q24H IVPB Last administered on 06/14/16 12:00; Admin Dose 200 MLS/HR; Start 06/10/16 at 12:00 Lisinopril (Zestril) 5 mg DAILY PO Last administered on 06/15/16 08:39; Admin Dose 5 MG; Start 06/13/16 at 09:00 Assessment/Plan Additional Assessment/Plan Rehab- midbrain hem CVA Continue rehab treatment plan, caregiver training DM- monitor BS HTN Dysphagia-improving ALEXANDRO MELTON MD Jun 15, 2016 09:46
[2016-06-15] MEDS: ERTAPENEM SODIUM 1 GM in SOD CHLORIDE 0.9% 100 ML IVPB SCH (14:10)
[2016-06-15 19:27] VITALS: BP 161/94; RESP 20
[2016-06-15] MEDS: SENNA TAB PO SCH (20:47)
[2016-06-15] MEDS: ATORVASTATIN 80 MG TAB PO SCH (20:47)
[2016-06-16] MEDS: ACCUCHECK AT 2AM (Patients on SS coverage) XX SCH (02:00)
[2016-06-16] MEDS: Insulin NOVOLOG SS MILD Algorithm (SS with meals and bedtime) SC SCH ×4 (07:05→20:41)
[2016-06-16] MEDS: INSULIN GLARGINE [LANtus] 3 ML PEN SC SCH (07:50)
[2016-06-16 08:00] VITALS: BP 158/92; PULSE 74; RESP 18
[2016-06-16] MEDS: DOCUSATE SODIUM 100 MG CAP PO SCH ×2 (08:49→20:35)
[2016-06-16] MEDS: METOPROLOL 50 MG TAB PO SCH ×2 (08:49→20:36)
[2016-06-16] MEDS: LISINOPRIL 5 MG TAB PO SCH (08:49)
[2016-06-16] MEDS: NIFEdipine (XL) 60 MG TAB PO SCH ×2 (08:50→20:36)
[2016-06-16] MEDS: ERTAPENEM SODIUM 1 GM in SOD CHLORIDE 0.9% 100 ML IVPB SCH (11:39)
[2016-06-16 19:38] VITALS: BP 163/91; RESP 21
[2016-06-16] MEDS: SENNA TAB PO SCH (20:35)
[2016-06-16] MEDS: ATORVASTATIN 80 MG TAB PO SCH (20:35)
[2016-06-17] MEDS: ACCUCHECK AT 2AM (Patients on SS coverage) XX SCH (02:37)
[2016-06-17] MEDS: Insulin NOVOLOG SS MILD Algorithm (SS with meals and bedtime) SC SCH ×4 (07:05→21:00)
[2016-06-17 07:30] VITALS: BP 175/90; RESP 18
[2016-06-17] MEDS: LISINOPRIL 5 MG TAB PO SCH (08:02)
[2016-06-17] MEDS: NIFEdipine (XL) 60 MG TAB PO SCH ×2 (08:02→20:57)
[2016-06-17] MEDS: METOPROLOL 50 MG TAB PO SCH ×2 (08:03→20:57)
[2016-06-17] MEDS: DOCUSATE SODIUM 100 MG CAP PO SCH ×2 (08:03→20:54)
[2016-06-17] MEDS: INSULIN GLARGINE [LANtus] 3 ML PEN SC SCH (08:07)
--- NOTE | 2016-06-17 11:41 | CONS ---
Date/Time of Note Date/Time of Note DATE: 06/17/16 TIME: 11:39 Consult Date/Type/Reason Admit Date/Time Jun 05, 2016 at 20:45 Subjective Doing well Objective Vital Signs Date Time Temp Pulse Resp B/P Pulse Ox O2 Delivery O2 Flow Rate FiO2 06/17/16 07:30 98.7 79 18 175/90 96 06/16/16 08:00 Room Air Intake and Output 06/16/16 06/16/16 06/17/16 15:00 23:00 07:00 Intake Total 100 ml 450 ml Balance 100 ml 450 ml INTERDISCIPLINARY TEAM CONFERENCE BOWEL- Cont BLADDER-Cont SKIN- intact OT- DRESSING-mod BATHING-mod TOILETING-mod PT- BED MOBILITY-mod TRANSFERS-mod AMBULATION-max 25 feet W.C. MOBILITY SPEECH- COGNITION-min/mod DYPHAGIA A/P- Interdisciplinary team conference held today. Please see interdisciplinary sheet. Working toward d.c. on 06/21 with post discharge follow up of physical therapy, occupational therapy. Results/Medications Result Diagram: 06/14/16 0610 Results 24 hrs Laboratory Tests Test 06/16/16 17:20 06/16/16 20:11 06/17/16 02:28 06/17/16 07:34 Bedside Glucose 113 224 H 93 106 Test 06/17/16 11:23 Bedside Glucose 155 Medications Current Medications Acetaminophen (Tylenol Tab) 650 mg Q4H PRN PO PAIN AND OR ELEVATED TEMP Last administered on 06/08/16 17:21; Admin Dose 650 MG; Start 06/05/16 at 22:30 Atorvastatin Calcium (Lipitor) 80 mg HS PO Last administered on 06/16/16 20:35 ; Admin Dose 80 MG; Start 06/06/16 at 21:00 Docusate Sodium (Colace) 100 mg BID PO Last administered on 06/17/16 08:03; Admin Dose 100 MG; Start 06/06/16 at 09:00 Senna (Senokot) 1 tab HS PO Last administered on 06/16/16 20:35; Admin Dose 1 TAB; Start 06/06/16 at 21:00 Magnesium Hydroxide (Milk Of Mag) 30 ml BID PRN PO CONSTIPATION Last administered on 06/07/16 08:27; Admin Dose 30 ML; Start 06/05/16 at 22:30 Lactulose (Enulose) 20 gm DAILY PRN PO CONSTIPATION Last administered on 16:06; Admin Dose 20 GM; Start 06/05/16 at 22:30 Bisacodyl (Dulcolax Supp) [address] [place] CONSTIPATION; Start 06/05/16 at 22 :30 Miscellaneous Information 1 ea NOTE XX ; Start 06/05/16 at 23:00 Glucose (Glutose) 15 gm Q15M PRN PO DECREASED GLUCOSE; Start 06/05/16 at 23:00 Glucose (Glutose) 22.5 gm Q15M PRN PO DECREASED GLUCOSE; Start 06/05/16 at 23: 00 Dextrose (D50w Syringe) 25 ml Q15M PRN IV DECREASED GLUCOSE; Start 06/05/16 at 23:00 Dextrose (D50w Syringe) 50 ml Q15M PRN IV DECREASED GLUCOSE; Start 06/05/16 at 23:00 Glucagon (Glucagen) 1 mg Q15M PRN IM DECREASED GLUCOSE; Start 06/05/16 at 23:00 Glucose (Glutose) 15 gm Q15M PRN BUCCAL DECREASED GLUCOSE; Start 06/05/16 at 23 :00 Diagnostic Test (Pha) (Accucheck) 1 ea 02 XX Last administered on 06/17/16 02: 37; Admin Dose 1 EA; Start 06/06/16 at 02:00 Metoprolol Tartrate (Lopressor) 50 mg BID PO Last administered on 06/17/16 08: 03; Admin Dose 50 MG; Start 06/06/16 at 21:00 Ondansetron HCl (Zofran Inj) 4 mg Q6H PRN IV NAUSEA AND/OR VOMITING; Start at 15:00 Insulin Glargine (Lantus) 18 unit DAILY@08 SC Last administered on 06/17/16 08: 07; Admin Dose 18 UNIT; Start 06/09/16 at 08:00 Nifedipine 60 mg 60 mg BID PO Last administered on 06/17/16 08:02; Admin Dose 60 MG; Start 06/08/16 at 21:00 Ertapenem/Sodium Chloride (Invanz/NS) 100 ml @ 200 mls/hr Q24H IVPB Last administered on 06/16/16 11:39; Admin Dose 200 MLS/HR; Start 06/10/16 at 12:00 Lisinopril (Zestril) 10 mg DAILY PO ; Start 06/18/16 at 09:00 ALEXANDRO MELTON MD Jun 17, 2016 11:40
[2016-06-17] MEDS: ERTAPENEM SODIUM 1 GM in SOD CHLORIDE 0.9% 100 ML IVPB SCH (12:36)
--- NOTE | 2016-06-17 17:20 | PN ---
DATE: 06/17/2016 SUBJECTIVE: Acute rehab followup. The patient ____ remains stable. No new events overnight. PHYSICAL EXAMINATION: VITAL SIGNS: Temperature 98, pulse 79, blood pressure 170/90, O2 saturation 96% on room air. NECK: Supple. No JVD or lymphadenopathy. CARDIAC: S1, S2. No added sounds or murmurs. CHEST: Diminished air entry bilaterally. ABDOMEN: Soft, nontender. No guarding or rebound. EXTREMITIES: No cyanosis, clubbing, edema. NEUROLOGIC: Grossly intact. IMPRESSION AND PLAN: 1. Recent subacute midbrain bleed. 2. Essential hypertension. 3. Diabetes mellitus. 4. Hyperlipidemia. PLAN: 1. Continue physical therapy. 2. Continue blood pressure management, may require adjustment. 3. Continue physical therapy. 4. DVT and GI prophylaxis. Dictated By: ELIO MICHELLE/APRYL Conf#: [id number] DID#: [id number]
[2016-06-17 19:47] VITALS: BP 167/97; RESP 19
[2016-06-17] MEDS: SENNA TAB PO SCH (20:55)
[2016-06-17] MEDS: ATORVASTATIN 80 MG TAB PO SCH (20:55)
[2016-06-18] MEDS: ACCUCHECK AT 2AM (Patients on SS coverage) XX SCH (02:00)
[2016-06-18 06:56] LABS: POTASSIUM 3.9 mmol/L (3.5-5.1)
[2016-06-18 06:58] LABS: CREATININE 0.69 mg/dl (0.44-1.00)
[2016-06-18 06:59] LABS: CALCIUM 9.1 mg/dl (8.4-10.2); PHOSPHORUS 3.8 mg/dl (2.5-4.9)
--- NOTE | 2016-06-18 07:01 | PN ---
DATE: 06/17/2016 SUBJECTIVE: The patient is stable, no acute events overnight. No fevers, chills, nausea, vomiting, no shortness of breath. OBJECTIVE: VITAL SIGNS: Blood pressure 175/90, respirations 18, pulse 79, temperature 98.7. HEENT: Head is normocephalic. NECK: Supple. HEART: Regular rate. LUNGS: Show diminished breath sounds at the base. ABDOMEN: Soft, nontender to palpation. No rebound or guarding. EXTREMITIES: Negative for clubbing, cyanosis, no edema. DERMATOLOGIC: No rashes. MUSCULOSKELETAL: No joint effusions. NEUROLOGIC: No change in exam. MEDICATIONS: Have been reviewed. LABORATORY DATA: Has been reviewed. No new labs. ASSESSMENT AND PLAN: 1. Nonoliguric acute kidney injury with previous baseline creatinine 0.8 mg/dL. Etiology of acute kidney injury is secondary to FLACO inhibitor hemodynamics. Renal function has returned to baseline. The patient was reintroduced on FLACO inhibitor. Will up titrate slowly, monitor renal function clos elma. 2. Mineral bone disorder. Continue to monitor calcium and phosphorus levels, no need for phosphate binders. 3. Hypertension. Blood pressure remains elevated, will increase the lisinopril. Monitor closely. 4. Acute cerebrovascular with right-sided hemiparesis. Continue medical management. Continue PT, OT. 5. Diabetes. Continue current insulin regimen. 6. Urinary tract infection. The patient is completing an antibiotic course. 7. Dyslipidemia. Continue statin therapy. Dictated By: TEO NGUYEN/NTS Conf#: [id number] DID#: [id number]
[2016-06-18] MEDS: Insulin NOVOLOG SS MILD Algorithm (SS with meals and bedtime) SC SCH ×4 (07:05→20:25)
[2016-06-18 08:27] VITALS: BP 174/89; RESP 18
[2016-06-18] MEDS: INSULIN GLARGINE [LANtus] 3 ML PEN SC SCH (08:44)
[2016-06-18] MEDS: DOCUSATE SODIUM 100 MG CAP PO SCH ×2 (08:45→20:17)
[2016-06-18] MEDS: METOPROLOL 50 MG TAB PO SCH ×2 (08:45→20:18)
[2016-06-18] MEDS: NIFEdipine (XL) 60 MG TAB PO SCH ×2 (08:45→20:24)
[2016-06-18] MEDS: LISINOPRIL 10 MG TAB PO SCH (08:46)
[2016-06-18] MEDS: ERTAPENEM SODIUM 1 GM in SOD CHLORIDE 0.9% 100 ML IVPB SCH (12:00)
--- NOTE | 2016-06-18 12:28 | CONS ---
Date/Time of Note Date/Time of Note DATE: 06/18/16 TIME: 12:28 Consult Date/Type/Reason Admit Date/Time Jun 05, 2016 at 20:45 Subjective no new complaints Objective pulm-cta improving activity tolerance Vital Signs Date Time Temp Pulse Resp B/P Pulse Ox O2 Delivery O2 Flow Rate FiO2 06/18/16 08:27 98.5 73 18 174/89 96 06/16/16 08:00 Room Air Intake and Output 06/17/16 06/17/16 06/18/16 15:00 23:00 07:00 Intake Total 460 ml 240 ml Balance 460 ml 240 ml Results/Medications Result Diagram: 06/18/16 0605 Results 24 hrs Laboratory Tests Test 06/17/16 17:00 06/17/16 20:53 06/18/16 06:05 06/18/16 07:33 Bedside Glucose 165 116 114 Anion Gap 18 H Blood Urea Nitrogen 17 Calcium Level 9.1 Carbon Dioxide Level 25 Chloride Level 105 Creatinine 0.69 Glucose Level 99 Magnesium Level 2.0 Phosphorus Level 3.8 Potassium Level 3.9 Sodium Level 144 Test 06/18/16 12:04 Bedside Glucose 125 Medications Current Medications Acetaminophen (Tylenol Tab) 650 mg Q4H PRN PO PAIN AND OR ELEVATED TEMP Last administered on 06/08/16 17:21; Admin Dose 650 MG; Start 06/05/16 at 22:30 Atorvastatin Calcium (Lipitor) 80 mg HS PO Last administered on 06/17/16 20:55 ; Admin Dose 80 MG; Start 06/06/16 at 21:00 Docusate Sodium (Colace) 100 mg BID PO Last administered on 06/18/16 08:45; Admin Dose 100 MG; Start 06/06/16 at 09:00 Senna (Senokot) 1 tab HS PO Last administered on 06/17/16 20:55; Admin Dose 1 TAB; Start 06/06/16 at 21:00 Magnesium Hydroxide (Milk Of Mag) 30 ml BID PRN PO CONSTIPATION Last administered on 06/07/16 08:27; Admin Dose 30 ML; Start 06/05/16 at 22:30 Lactulose (Enulose) 20 gm DAILY PRN PO CONSTIPATION Last administered on 16:06; Admin Dose 20 GM; Start 06/05/16 at 22:30 Bisacodyl (Dulcolax Supp) 10 mg DAILY PRN [place] CONSTIPATION; Start 06/05/16 at 22 :30 Miscellaneous Information 1 ea NOTE XX ; Start 06/05/16 at 23:00 Glucose (Glutose) 15 gm Q15M PRN PO DECREASED GLUCOSE; Start 06/05/16 at 23:00 Glucose (Glutose) 22.5 gm Q15M PRN PO DECREASED GLUCOSE; Start 06/05/16 at 23: 00 Dextrose (D50w Syringe) 25 ml Q15M PRN IV DECREASED GLUCOSE; Start 06/05/16 at 23:00 Dextrose (D50w Syringe) 50 ml Q15M PRN IV DECREASED GLUCOSE; Start 06/05/16 at 23:00 Glucagon (Glucagen) 1 mg Q15M PRN IM DECREASED GLUCOSE; Start 06/05/16 at 23:00 Glucose (Glutose) 15 gm Q15M PRN BUCCAL DECREASED GLUCOSE; Start 06/05/16 at 23 :00 Diagnostic Test (Pha) (Accucheck) 1 ea 02 XX Last administered on 06/17/16 02: 37; Admin Dose 1 EA; Start 06/06/16 at 02:00 Metoprolol Tartrate (Lopressor) 50 mg BID PO Last administered on 06/18/16 08: 45; Admin Dose 50 MG; Start 06/06/16 at 21:00 Ondansetron HCl (Zofran Inj) 4 mg Q6H PRN IV NAUSEA AND/OR VOMITING; Start at 15:00 Insulin Glargine (Lantus) 18 unit DAILY@08 SC Last administered on 06/18/16 08: 44; Admin Dose 18 UNIT; Start 06/09/16 at 08:00 Nifedipine 60 mg 60 mg BID PO Last administered on 06/18/16 08:45; Admin Dose 60 MG; Start 06/08/16 at 21:00 Ertapenem/Sodium Chloride (Invanz/NS) 100 ml @ 200 mls/hr Q24H IVPB Last administered on 06/17/16 12:36; Admin Dose 200 MLS/HR; Start 06/10/16 at 12:00 Lisinopril (Zestril) 10 mg DAILY PO Last administered on 06/18/16 08:46; Admin Dose 10 MG; Start 06/18/16 at 09:00 Assessment/Plan Additional Assessment/Plan Rehab- midbrain hem CVA Excellent progress with rehab treatment plan DM- monitor BS HTN Dysphagia-improving ALEXANDRO MELTON MD Jun 18, 2016 12:28
--- NOTE | 2016-06-18 17:40 | PN ---
DATE: 06/18/2016 SUBJECTIVE: Patient remains stable. No new events, afebrile. PHYSICAL EXAMINATION: VITAL SIGNS: Remain within normal limits, temperature 98, pulse is 77, blood pressure 170/89, O2 sa turation 96% on room air. NECK: Supple, no JVD or lymphadenopathy. CARDIAC: S1, S2, no added sounds or murmurs. CHEST: Diminished air entry bilaterally. ABDOMEN: Soft, nontender. No guarding or rebound. EXTREMITIES: No cyanosis, clubbing, edema. Notes mild weakness. IMPRESSION AND PLAN: 1. Recent cerebrovascular accident with left hemiparesis. 2. History of renal insufficiency. 3. Hypertension. Appreciate increasing Lisinopril. We will continue to monitor. May require furt her adjustment on antihypertensives. 4. No longer requires intravenous antibiotics. Dictated By: ELIO MICHELLE/APRYL Conf#: [id number] DID#: [id number]
[2016-06-18 19:31] VITALS: BP 162/94; RESP 20
[2016-06-18] MEDS: SENNA TAB PO SCH (20:17)
[2016-06-18] MEDS: ATORVASTATIN 80 MG TAB PO SCH (20:18)
[2016-06-19] VITALS: BP 160/91; PULSE 63
[2016-06-19] MEDS: ACCUCHECK AT 2AM (Patients on SS coverage) XX SCH (02:00)
[2016-06-19] MEDS: Insulin NOVOLOG SS MILD Algorithm (SS with meals and bedtime) SC SCH ×4 (07:05→21:00)
[2016-06-19 07:56] VITALS: BP 170/94; RESP 18
[2016-06-19] MEDS: INSULIN GLARGINE [LANtus] 3 ML PEN SC SCH (08:14)
[2016-06-19] MEDS: METOPROLOL 50 MG TAB PO SCH ×2 (08:15→20:31)
[2016-06-19] MEDS: LISINOPRIL 10 MG TAB PO SCH (08:15)
[2016-06-19] MEDS: NIFEdipine (XL) 60 MG TAB PO SCH ×2 (08:15→20:31)
[2016-06-19] MEDS: DOCUSATE SODIUM 100 MG CAP PO SCH ×2 (08:15→20:31)
--- NOTE | 2016-06-19 12:27 | CONS ---
Date/Time of Note Date/Time of Note DATE: 06/19/16 TIME: 12:27 Consult Date/Type/Reason Admit Date/Time Jun 05, 2016 at 20:45 Subjective Speech improving Objective pulm-cta abd-soft mod assist mobility Vital Signs Date Time Temp Pulse Resp B/P Pulse Ox O2 Delivery O2 Flow Rate FiO2 06/19/16 07:56 98.3 65 18 170/94 95 06/16/16 08:00 Room Air Intake and Output 06/18/16 06/18/16 06/19/16 15:00 23:00 07:00 Intake Total 720 ml 840 ml 400 ml Output Total 300 ml 250 ml Balance 420 ml 590 ml 400 ml Results/Medications Result Diagram: 06/18/16 0605 Results 24 hrs Laboratory Tests Test 06/18/16 16:58 06/18/16 20:03 06/19/16 07:46 06/19/16 11:50 Bedside Glucose 107 137 87 125 Medications Current Medications Acetaminophen (Tylenol Tab) 650 mg Q4H PRN PO PAIN AND OR ELEVATED TEMP Last administered on 06/08/16 17:21; Admin Dose 650 MG; Start 06/05/16 at 22:30 Atorvastatin Calcium (Lipitor) 80 mg HS PO Last administered on 06/18/16 20:18 ; Admin Dose 80 MG; Start 06/06/16 at 21:00 Docusate Sodium (Colace) 100 mg BID PO Last administered on 06/19/16 08:15; Admin Dose 100 MG; Start 06/06/16 at 09:00 Senna (Senokot) 1 tab HS PO Last administered on 06/18/16 20:17; Admin Dose 1 TAB; Start 06/06/16 at 21:00 Magnesium Hydroxide (Milk Of Mag) 30 ml BID PRN PO CONSTIPATION Last administered on 06/07/16 08:27; Admin Dose 30 ML; Start 06/05/16 at 22:30 Lactulose (Enulose) 20 gm DAILY PRN PO CONSTIPATION Last administered on 16:06; Admin Dose 20 GM; Start 06/05/16 at 22:30 Bisacodyl (Dulcolax Supp) 10 mg DAILY PRN [place] CONSTIPATION; Start 06/05/16 at 22 :30 Miscellaneous Information 1 ea NOTE XX ; Start 06/05/16 at 23:00 Glucose (Glutose) 15 gm Q15M PRN PO DECREASED GLUCOSE; Start 06/05/16 at 23:00 Glucose (Glutose) 22.5 gm Q15M PRN PO DECREASED GLUCOSE; Start 06/05/16 at 23: 00 Dextrose (D50w Syringe) 25 ml Q15M PRN IV DECREASED GLUCOSE; Start 06/05/16 at 23:00 Dextrose (D50w Syringe) 50 ml Q15M PRN IV DECREASED GLUCOSE; Start 06/05/16 at 23:00 Glucagon (Glucagen) 1 mg Q15M PRN IM DECREASED GLUCOSE; Start 06/05/16 at 23:00 Glucose (Glutose) 15 gm Q15M PRN BUCCAL DECREASED GLUCOSE; Start 06/05/16 at 23 :00 Diagnostic Test (Pha) (Accucheck) 1 ea 02 XX Last administered on 06/17/16 02: 37; Admin Dose 1 EA; Start 06/06/16 at 02:00 Metoprolol Tartrate (Lopressor) 50 mg BID PO Last administered on 06/19/16 08: 15; Admin Dose 50 MG; Start 06/06/16 at 21:00 Ondansetron HCl (Zofran Inj) 4 mg Q6H PRN IV NAUSEA AND/OR VOMITING; Start at 15:00 Insulin Glargine (Lantus) 18 unit DAILY@08 SC Last administered on 06/19/16 08: 14; Admin Dose 18 UNIT; Start 06/09/16 at 08:00 Nifedipine (Procardia Xl) 60 mg BID PO Last administered on 06/19/16 08:15; Admin Dose 60 MG; Start 06/08/16 at 21:00 Lisinopril (Zestril) 10 mg DAILY PO Last administered on 06/19/16 08:15; Admin Dose 10 MG; Start 06/18/16 at 09:00 Assessment/Plan Additional Assessment/Plan Rehab- midbrain hem CVA Continue rehab therapies, caregiver training DM- monitor BS HTN Dysphagia-improving ALEXANDRO MELTON MD Jun 19, 2016 12:27
[2016-06-19 20:31] VITALS: BP 151/92; RESP 18
[2016-06-19] MEDS: ATORVASTATIN 80 MG TAB PO SCH (20:31)
[2016-06-19] MEDS: SENNA TAB PO SCH (20:31)
[2016-06-20] MEDS: ACCUCHECK AT 2AM (Patients on SS coverage) XX SCH (02:00)
[2016-06-20] MEDS: Insulin NOVOLOG SS MILD Algorithm (SS with meals and bedtime) SC SCH ×4 (07:05→21:00)
[2016-06-20 07:30] VITALS: BP 162/92; RESP 20
[2016-06-20] MEDS: DOCUSATE SODIUM 100 MG CAP PO SCH ×2 (08:13→21:17)
[2016-06-20] MEDS: NIFEdipine (XL) 60 MG TAB PO SCH ×2 (08:13→21:18)
[2016-06-20] MEDS: METOPROLOL 50 MG TAB PO SCH ×2 (08:14→21:18)
[2016-06-20] MEDS: LISINOPRIL 10 MG TAB PO SCH (08:14)
[2016-06-20] MEDS: INSULIN GLARGINE [LANtus] 3 ML PEN SC SCH (08:17)
--- NOTE | 2016-06-20 12:04 | CONS ---
Date/Time of Note Date/Time of Note DATE: 06/20/16 TIME: 12:04 Consult Date/Type/Reason Admit Date/Time Jun 05, 2016 at 20:45 Subjective comfortable Objective pulm-cta abd-soft Vital Signs Date Time Temp Pulse Resp B/P Pulse Ox O2 Delivery O2 Flow Rate FiO2 06/20/16 07:30 98.4 72 20 162/92 94 06/16/16 08:00 Room Air Intake and Output 06/19/16 06/19/16 06/20/16 14:59 22:59 06:59 Intake Total 720 ml 840 ml 300 ml Output Total 400 ml 250 ml Balance 320 ml 590 ml 300 ml Results/Medications Result Diagram: 06/18/16 06 Results 24 hrs Laboratory Tests Test 06/19/16 17:02 06/19/16 20:14 06/20/16 07:30 Bedside Glucose 136 144 92 Medications Current Medications Acetaminophen (Tylenol Tab) 650 mg Q4H PRN PO PAIN AND OR ELEVATED TEMP Last administered on 06/08/16 17:21; Admin Dose 650 MG; Start 06/05/16 at 22:30 Atorvastatin Calcium (Lipitor) 80 mg HS PO Last administered on 06/19/16 20:31 ; Admin Dose 80 MG; Start 06/06/16 at 21:00 Docusate Sodium (Colace) 100 mg BID PO Last administered on 06/20/16 08:13; Admin Dose 100 MG; Start 06/06/16 at 09:00 Senna (Senokot) 1 tab HS PO Last administered on 06/19/16 20:31; Admin Dose 1 TAB; Start 06/06/16 at 21:00 Magnesium Hydroxide (Milk Of Mag) 30 ml BID PRN PO CONSTIPATION Last administered on 06/07/16 08:27; Admin Dose 30 ML; Start 06/05/16 at 22:30 Lactulose (Enulose) 20 gm DAILY PRN PO CONSTIPATION Last administered on 16:06; Admin Dose 20 GM; Start 06/05/16 at 22:30 Bisacodyl (Dulcolax Supp) 10 mg DAILY PRN [place] CONSTIPATION; Start 06/05/16 at 22 :30 Miscellaneous Information 1 ea NOTE XX ; Start 06/05/16 at 23:00 Glucose (Glutose) 15 gm Q15M PRN PO DECREASED GLUCOSE; Start 06/05/16 at 23:00 Glucose (Glutose) 22.5 gm Q15M PRN PO DECREASED GLUCOSE; Start 06/05/16 at 23: 00 Dextrose (D50w Syringe) 25 ml Q15M PRN IV DECREASED GLUCOSE; Start 06/05/16 at 23:00 Dextrose (D50w Syringe) 50 ml Q15M PRN IV DECREASED GLUCOSE; Start 06/05/16 at 23:00 Glucagon (Glucagen) 1 mg Q15M PRN IM DECREASED GLUCOSE; Start 06/05/16 at 23:00 Glucose (Glutose) 15 gm Q15M PRN BUCCAL DECREASED GLUCOSE; Start 06/05/16 at 23 :00 Diagnostic Test (Pha) (Accucheck) 1 ea 02 XX Last administered on 06/17/16 02: 37; Admin Dose 1 EA; Start 06/06/16 at 02:00 Metoprolol Tartrate (Lopressor) 50 mg BID PO Last administered on 06/20/16 08: 14; Admin Dose 50 MG; Start 06/06/16 at 21:00 Ondansetron HCl (Zofran Inj) 4 mg Q6H PRN IV NAUSEA AND/OR VOMITING; Start at 15:00 Insulin Glargine (Lantus) 18 unit DAILY@08 SC Last administered on 06/20/16 08: 17; Admin Dose 18 UNIT; Start 06/09/16 at 08:00 Nifedipine (Procardia Xl) 60 mg BID PO Last administered on 06/20/16 08:13; Admin Dose 60 MG; Start 06/08/16 at 21:00 Lisinopril (Zestril) 10 mg DAILY PO Last administered on 06/20/16 08:14; Admin Dose 10 MG; Start 06/18/16 at 09:00 Assessment/Plan Additional Assessment/Plan Rehab- midbrain hem CVA Continue rehab therapies, caregiver training. DC tomorrow DM- monitor BS HTN Dysphagia-improving ALEXANDRO MELTON MD Jun 20, 2016 12:04
--- NOTE | 2016-06-20 13:15 | PN ---
DATE: 06/20/2016 SUBJECTIVE: The patient remains stable this morning, continues physical therapy. PHYSICAL EXAMINATION VITAL SIGNS: Temperature 98, pulse 72, blood pressure 160/92, O2 saturation 96% on room air. NECK: Supple. No JVD or lymphadenopathy. CARDIAC: S1, S2, no added sounds or murmurs. CHEST: Diminished air entry bilaterally. ABDOMEN: Soft, nontender. No guarding or rebound. EXTREMITIES: No cyanosis, clubbing. She has hemiplegia. LABORATORY DATA: No labs drawn today. ASSESSMENT AND PLAN: A 45-year-old lady with history of CVA, hemiplegia, history of hypertension, c ontinues physical therapy. We will continue with blood pressure management, statin, aspirin and FLACO inhibitor. Will repeat blood test tomorrow morning to ensure renal function remains stable. She m ay require further adjustment in antihypertensives. She remains moderately hypertensive still. Dictated By: ELIO MICHELLE/APRYL Conf#: [id number] DID#: [id number]
[2016-06-20 20:59] VITALS: BP 141/82; RESP 19
[2016-06-20] MEDS: ATORVASTATIN 80 MG TAB PO SCH (21:17)
[2016-06-20] MEDS: SENNA TAB PO SCH (21:17)
[2016-06-21] MEDS: ACCUCHECK AT 2AM (Patients on SS coverage) XX SCH (02:00)
[2016-06-21] MEDS: Insulin NOVOLOG SS MILD Algorithm (SS with meals and bedtime) SC SCH (07:05)
[2016-06-21 07:29] LABS: ADD SCAN DIFF NO
[2016-06-21 07:30] VITALS: BP 159/87; RESP 18
[2016-06-21 07:34] LABS: BASOPHIL # 0.1 10^3/ul (0.0-0.1); BASOPHILS % 0.7 % (0.0-2.0); EOSINOPHILS # 0.3 10^3/ul (0.0-0.5); EOSINOPHILS % 3.5 % (0.0-7.0); HEMATOCRIT 45.6 % (37.0-47.0); HEMOGLOBIN 15.2 g/dl (12.0-16.0); LYMPHOCYTES # 3.4 10^3/ul (0.8-2.9); LYMPHOCYTES % 39.1 % (15.0-51.0); MEAN CORPUSCULAR HEMOGLOBIN 30.6 pg (29.0-33.0); MEAN CORPUSCULAR HGB CONC 33.3 g/dl (32.0-37.0); MEAN CORPUSCULAR VOLUME 91.9 fl (82.0-101.0); MEAN PLATELET VOLUME 11.2 fl (7.4-10.4); MONOCYTE # 0.5 10^3/ul (0.3-0.9); MONOCYTES % 5.8 % (0.0-11.0); NEUTROPHIL # 4.3 10^3/ul (1.6-7.5); NEUTROPHILS % 50.7 % (39.0-77.0); PLATELET COUNT 249 10^3/UL (140-415); RED BLOOD COUNT 4.96 10^6/ul (4.20-5.40); RED CELL DISTRIBUTION WIDTH 12.7 % (11.5-14.5); WHITE BLOOD COUNT 8.6 10^3/ul (4.8-10.8)
[2016-06-21 07:52] LABS: CREATININE 0.78 mg/dl (0.44-1.00)
[2016-06-21 07:53] LABS: CALCIUM 9.2 mg/dl (8.4-10.2); PHOSPHORUS 3.9 mg/dl (2.5-4.9)
[2016-06-21] MEDS: INSULIN GLARGINE [LANtus] 3 ML PEN SC SCH (08:00)
[2016-06-21] MEDS: DOCUSATE SODIUM 100 MG CAP PO SCH (08:46)
[2016-06-21] MEDS: LISINOPRIL 10 MG TAB PO SCH (08:47)
[2016-06-21] MEDS: METOPROLOL 50 MG TAB PO SCH (08:47)
[2016-06-21] MEDS: NIFEdipine (XL) 60 MG TAB PO SCH (08:47)
--- NOTE | 2016-06-25 12:37 | DS ---
DATE OF ADMISSION: 06/05/2016 DATE OF DISCHARGE: 06/21/2016 ADMISSION DIAGNOSES: 1. 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 2. Diabetes mellitus. 3. Hypertension. 4. Dysphagia. 5. Impairments in self-care and mobility. DISCHARGE DIAGNOSES: 1. 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 2. Diabetes mellitus. 3. Hypertension. 4. Dysphagia. 5. Improvements in self-care and mobility. HOSPITAL COURSE: The patient was admitted for comprehensive interdisciplinary acute rehab and made excellent functional gains during the course of the stay. The patient progressed from an initial ma ximal assist for self-care and mobility tasks and progressed to the point of minimal assist for self -care and mobility including transfers, ambulation with the use of a front-wheel walker and a left t oe off brace and wheelchair mobility. Family was safely trained in assistance and able to demonstra te safe carryover of technique. The patient is being discharged home with the recommendation of [facility] physical therapy, occupational therapy, and speech therapy followup. DISCHARGE MEDICATIONS: Per the medication reconciliation sheet. CONDITION ON DISCHARGE: Stable. Dictated By: ALEXANDRO CABAN/NTS Conf#: [id number] DID#: [id number]
== END 2016-06-21 11:15 | disposition home health service (06) | DRG 57 ==
LOC: VRC 20:45
PROVIDERS: ADMIT Physical Medicine & Rehabilitation; ATTEND Family Medicine
DX: I69.254 Hemiplegia and hemiparesis following other nontraumatic intracranial hemorrhage affecting left non-dominant side (principal); N17.9 Acute kidney failure, unspecified; E11.65 Type 2 diabetes mellitus with hyperglycemia; N39.0 Urinary tract infection, site not specified; R13.10 Dysphagia, unspecified; I10 Essential (primary) hypertension; E11.9 Type 2 diabetes mellitus without complications; B96.20 Unspecified Escherichia coli [E. coli] as the cause of diseases classified elsewhere; Z91.19 Patient's noncompliance with other medical treatment and regimen; E78.5 Hyperlipidemia, unspecified; B96.4 Proteus (mirabilis) (morganii) as the cause of diseases classified elsewhere
CPT/HCPCS: 76775; 80048; 80053; 81001; 81003; 82043; 82962; 83036; 83735; 84100; 84155; 84300; 85025; 87081; 87086; 90686; 92507; 92523; 92526; 92610; 95852; 97110; 97112; 97116; 97150; 97163; 97167; 97530; 97535; 97542; J1335; J1815; J2405; L1932; L2820